=== PATIENT | female | born 1990 | race Caucasian/White ===

== ENCOUNTER 2017-05-05 19:22 | Emergency (ER) | payer BC, OTHER ==
[~2017-05-05] VITALS: Ht 180.3 cm; Wt 126.0 kg
[~2017-05-05 19:22] MED LIST: IBUP-103 PO; PRENTAB26 PO
[2017-05-05 19:27] VITALS: Ht 180.3 cm; Wt 126.0 kg
[2017-05-05] MEDS ORDERED: PHEN-622 PO (19:40)
[2017-05-05] MEDS ORDERED: PHEN-715 PO (19:40)
[2017-05-05] MEDS ORDERED: AMOX875T PO (19:42)
[2017-05-05] MEDS ORDERED: AMOXICIL/CLAVU 875MG HOME PACK PO ONE (19:45)
[2017-05-05 19:48] VITALS: BP 126/72; PULSE 98; TEMP 36.8; O2SAT 97
--- NOTE | 2017-05-06 11:02 | Pharmacy Progress Note ---
ED Pharmacist Progress Note Date of Service: May 06, 2017. Pharmacist Dirk called from [facility] on [address] asking why only 18 tablets ( 9 days supply). I explained the patient did receive a homepack in the ER for the first 2 doses.
--- NOTE | 2017-05-06 18:54 | EMERGENCY ROOM VISIT NOTE ---
History First contact with patient: 19:29 Chief Complaint: CONGESTION Stated Complaint: FACIAL PAIN, TENDERNESS, EAR PAIN, CAN'T SLEEP Nursing Triage Summary: sinus pain and pressure for 3 days. History of Present Illness The patient is a 26 year old female who presents to the Emergency Room with complaints of left sided facial pain, ear pain, and difficulty sleeping worsening over the past 3 days. The patient works as a hairdresser with multiple exposures to disease. She has a history of sinus infections, and reports this feels similar to previous episodes. She has not had significant fever or chills. No chest pain, chest tightness, or shortness of breath. DayQuil and NyQuil have been minimally improving symptoms. She rates her overall discomfort a 7/10. Review of Systems More than 10 systems were reviewed and otherwise negative with the exception of history of present illness. Past Medical/Surgical History Medical Problems: (1) cholelithiasis (2) Sciatica Family History No pertinent family history Social History Smoking Status: Never Smoker Alcohol Use: occasionally Current/Historical Medications Scheduled Amoxicillin & Pot Clavulanate (Augmentin 875-125 mg), 1 TAB PO BID Scheduled PRN Dbhuchfkncxxk-Et-Kf W/ Apap (Vicks Dayquil Severe Cold), 1 TAB PO DIRECTED PRN for COLD SYMPTOMS Vdbfhbjlbmhhv-Mujawsuopk-Xapba (Vicks Nyquil Severe Cold 5-6.25-10-325 mg), 1 TAB PO DIRECTED PRN for COLD SYMPTOMS Physical Exam Vital Signs Date Time Temp Pulse Resp B/P (MAP) Pulse Ox O2 Delivery O2 Flow Rate FiO2 05/05/17 19:48 36.8 98 18 126/72 97 05/05/17 19:27 36.8 98 18 126/72 97 Room Air Physical Exam VITALS: Vitals are noted on the nurse's note and reviewed by myself. Vital signs stable. GENERAL: Well-developed, well-nourished, white female, who is in no acute distress and resting comfortably. Patient is cooperative with the examination. HEAD: Normocephalic atraumatic. Positive tenderness to percussion over the left maxillary sinus EARS: External ear normal. External auditory canals clear, tympanic membranes pearly marquez without erythema or effusion bilaterally. EYES: Pupils equal round and reactive to light and accommodation. Conjunctivae without injection, sclerae without icterus. Extraocular movements intact. NOSE: Patent, turbinates without inflammation or discharge. MOUTH: Mucous membranes moist. Tonsils are not enlarged. Pharynx without erythema, blood, or exudate. Uvula midline. Airway patent. NECK: Supple without nuchal rigidity. No lymphadenopathy. No thyromegaly. Cervical spine is nontender. HEART: Regular rate and rhythm without murmurs gallops or rubs. LUNGS: Clear to auscultation bilaterally without wheezes, rales or rhonchi. No retractions or accessory muscle use. Medical Decision & Procedures Medications Administered Medications (Trade) Dose Ordered Sig/Aleyda Route Start Time Stop Time Status Last Admin Dose Admin Amoxicillin/ Clavulanate Potassium (Augmentin 875MG Home Pack) 1 homepack UD ONCE PO 05/05/17 19:45 05/05/17 19:46 DC 05/05/17 19:45 1 HOMEPACK ED Course Physical exam and history were performed. Nursing notes, EMR, and Medication List were personally reviewed. Patient appears to have acute sinusitis based on examination and history. The patient will be given a course of Augmentin with her first doses provided here by home pack. She may use crme-vss-ptkqyyt analgesics and continue NyQuil and DayQuil. She is to follow with her primary care physician in the next few days and was otherwise invited back to the ER with any new, worsening, or concerning symptoms. The chart was completed utilizing [employer] Speech Voice Recognition Software. Grammatical errors, random word insertions, pronoun errors, and incomplete sentences are an occasional consequence of this system due to software limitations, ambient noise, and hardware issues. Any formal questions or concerns about the content, text, or information contained within the body of this dictation should be directly addressed to the provider for clarification. . Medical Decision Differential diagnosis: Etiologies such as viral syndrome, otitis, pharyngitis, pneumonia, influenza, meningitis, urinary tract infection, sepsis, bacteremia, as well as others were entertained. Impression Primary Impression: Acute sinusitis Departure Information Dispostion Home / Self-Care Condition GOOD Prescriptions Amoxicillin & Pot Clavulanate (Augmentin 875-125 mg) 1 Tab Tab 1 TAB PO BID for 9 Days, #18 TAB Prov: Kashif Schroeder PA-C 05/05/17 Forms HOME CARE DOCUMENTATION FORM, IMPORTANT VISIT INFORMATION Patient Instructions My [facility] Additional Instructions You were seen and evaluated today on an emergency basis only. This is not a substitute for, or an effort to provide, complete comprehensive medical care. It is not possible to recognize and treat all injuries or illnesses in a single emergency department visit. For this reason it is recommended that you followup with your primary care physician with any ongoing or persistent symptoms. For baseline pain relief you may alternate ibuprofen and acetaminophen every 4 hours for pain control. Take 600 mg ibuprofen (Advil) and then 4 hours later take 1000 mg acetaminophen (Tylenol). Do not take more than 3000 mg acetaminophen in a single day. Amoxicillin Clavulanate (Augmentin) 875mg: Take one pill twice daily for 10 total days for your infection. All antibiotics can cause diarrhea. If this occurs and you feel worse or it does not resolve in 1-2 days follow up with your doctor or return to the Emergency Department as this could be signs of serious underlying problems. Any medication can cause an allergic reaction, stop the pills immediately and return to the ER for rash, hives, breathing difficulties, or swelling. You are welcome to return to the emergency department anytime with new, worsening, or concerning symptoms.
== END 2017-05-05 19:49 | disposition home or self-care (01) ==
LOC: C.EDB 19:24 → C.EDD 19:49
DX: J01.90 Acute sinusitis, unspecified (principal); Z87.19 Personal history of other diseases of the digestive system; Z87.898 Personal history of other specified conditions

== ENCOUNTER 2023-12-25 06:16 | Observation (INO) ==
--- NOTE | 2023-05-15 11:18 | PAT Medication Instructions ---
Medication Instructions Date of Service May 15, 2023 Home Medications levonorgestrel 21 mcg/24 hours (8 yrs) 52 mg intrauterine device (Mirena) 1 device intrauterine CONTINOUS naproxen sodium 220 mg capsule (Aleve) 220 mg PO BID PRN Pain lamotrigine 200 mg tablet 200 mg PO BID lurasidone 120 mg tablet (Latuda) 120 mg PO QDD clonazepam 1 mg tablet (Klonopin) 1 mg PO BID PRN Anxiety escitalopram oxalate 20 mg tablet (Lexapro) 20 mg PO QAM pregabalin 25 mg capsule (Lyrica) 25 mg PO BID Continue as directed levonorgestrel 21 mcg/24 hours (8 yrs) 52 mg intrauterine device (Mirena) 1 device intrauterine CONTINOUS ASK your surgeon for instructions naproxen sodium 220 mg capsule (Aleve) 220 mg PO BID PRN Pain Take morning of surgery With a small sip of water, OTHERWISE NOTHING TO EAT OR DRINK AFTER MIDNIGHT: lamotrigine 200 mg tablet 200 mg PO BID clonazepam 1 mg tablet (Klonopin) 1 mg PO BID PRN Anxiety (if needed) escitalopram oxalate 20 mg tablet (Lexapro) 20 mg PO QAM pregabalin 25 mg capsule (Lyrica) 25 mg PO BID Take evening before surgery lamotrigine 200 mg tablet 200 mg PO BID lurasidone 120 mg tablet (Latuda) 120 mg PO QDD clonazepam 1 mg tablet (Klonopin) 1 mg PO BID PRN Anxiety (if needed) pregabalin 25 mg capsule (Lyrica) 25 mg PO BID Other Notes If you have any questions please call us at [phone] or [phone] or or [phone]
--- NOTE | 2023-05-20 11:47 | Anesthesiology Consultation ---
Date of Service May 20, 2023 Assessment & Plan (1) Encounter for pre-operative examination: - check urine test STAT am DOS. - awaiting [facility] PCP pre-op evaluation 05/22/23. Chart Review Chart Review: Pending: Refer to Additional Notes / Consult section and Patient seen in Pre Admission Testing Teaching & Discussion Pre-Anesthesia Teaching/Discussion Notes: Instructed NPO after midnight before surgery, except medications with 15 cc of water. Medication instructions provided according to the PAT guidelines. History Surgery Operation Date: 06/17/23 07:45 Proposed Procedures p Anterior Cervical Discectomy and Fusion C6-C7, Removal of Plate at C4-C6 with Spinal Cord Monitoring - Yevgeniy Rivera, Height/Weight Height: 5 ft 11 in Weight: 127.3 kg Allergies Allergy/AdvReac Type Severity Reaction Status Date / Time cefaclor Allergy Severe Respiratory Verified 05/16/23 09:20 issues (as a premie baby) Medications Home Medications Medication Instructions Recorded Confirmed Last Taken levonorgestrel 21 mcg/24 hours (8 1 device intrauterine CONTINOUS 03/27/18 05/14/23 Unknown yrs) 52 mg intrauterine device (Mirena) naproxen sodium 220 mg capsule 220 mg PO BID PRN Pain 05/02/18 05/14/23 05/01/18 21:00 (Aleve) lamotrigine 200 mg tablet 200 mg PO BID 01/18/22 05/14/23 01/18/22 08:00 lurasidone 120 mg tablet (Latuda) 120 mg PO QDD 01/18/22 05/14/23 01/17/22 clonazepam 1 mg tablet (Klonopin) 1 mg PO BID PRN Anxiety 05/14/23 05/14/23 Unknown escitalopram oxalate 20 mg tablet 20 mg PO QAM 05/14/23 05/14/23 Unknown (Lexapro) pregabalin 25 mg capsule (Lyrica) 25 mg PO BID 05/14/23 05/14/23 Unknown Past Medical History Medical History Anxiety Benign tumor of kidney Rt Bipolar disorder Cervical spinal stenosis Depression Fatty liver Seasonal allergies Patient denies h/o stroke, seizures, heart attack, heart failure, DM, HTN, blood clots/DVTs or blood transfusions. Exercise / Class Metabolic Activity III < 4 Walking/Shop/Light housework (denies chest discomfort or shortness of breath with usual activities, less than 8 steps in home) Past Family History Family History (Updated 05/20/23 @ 11:57 by Tonya Mejía PA-C) Father Diabetes Past Surgical History Surgical History History of cholecystectomy History of left knee surgery History of neck surgery Limited ROM up and side to side Hx of wisdom tooth extraction x2 Past Anesthesia History No Hx of Anesthesia Complications and Other (mother with bradycardia with nitrous oxide) History of PONV History of PONV (cholecystectomy, denies needing scop patch) and Hx of Motion Sickness STOP BANG Total 4 Social History Smoking Status: Former smoker Smoking cigarettes per day: currently vaping (no nicotine)-advised Do You Dip or Chew Tobacco: No Smoking End Date: quit cigs 8 days ago Hx Alcohol Use: Yes alcohol intake frequency: holidays/special occasions only Hx Substance Use: No substance use type: does not use Review of Systems Patient denies chest pain, shortness of breath, dyspnea on exertion, snoring, witnessed apneas, reflux, fever, chills, cough, wheezing, or palpitations. Physical Exam Vital Signs Vitals BP 118/78 P 71 TEMP 98.4 SP02 97% on RA RESP 17 Physical Patient resting comfortably in chair in no acute distress, alert and oriented, responding appropriately throughout visit Full cervical extension range of motion without pain TMD < 3 finger breadths Mallampati Score 3 Dentition: one broken/loose tooth, denies caps/crowns, implants or bridges Lungs: normal respiratory effort. Good air movement, clear throughout to auscultation, no adventitious breath sounds Cardiac: regular rate and rhythm, no murmurs noted Carotid arteries: negative bruit bilat Lab Results Anesthesia Preop Results Results Anesthesia Widget: WBC 8.33 K/ul (4.8-10.8) 05/20/23 Hgb 13.4 g/dl (12.0-16.0) 05/20/23 Hct 38.7 % (37.0-47.0) 05/20/23 Plt 269 K/uL (130-400) 05/20/23 Na 136 mmol/L (136-145) 05/20/23 K 4.1 mmol/L (3.5-5.1) 05/20/23 Cl 105 mmol/L (98-107) 05/20/23 CO2 26 mmol/L (21-32) 05/20/23 BUN 17 mg/dl (6-23) 05/20/23 Creat 0.66 mg/dl (0.6-1.2) 05/20/23 Glucose Level 95 mg/dl (70-99(Fasting)) 05/20/23 PT 10.9 Seconds (9.0-12.0) 05/20/23 PTT 29 Seconds (21-31) 05/20/23 INR 1.0 (0.9-1.1) 05/20/23 Urine Color Yellow 05/20/23 Urine Appearance Clear (Clear) 05/20/23 Urine pH 6.0 (4.5-7.5) 05/20/23 Urine Specific [place] 1.012 (1.000-1.030) 05/20/23 Urine Protein Negative (Negative) 05/20/23 Urine Glucose (UA) Negative (Negative) 05/20/23 Urine Ketones Negative (Negative) 05/20/23 Urine Blood 1+ (Negative) H 05/20/23 Urine Nitrite Negative (Negative) 05/20/23 Urine Bilirubin Negative (Negative) 05/20/23 Urine Urobilinogen Negative (Negative) 05/20/23 Urine Leukocyte Esterase Negative (Negative) 05/20/23 Urine WBC (Auto) 1-5 /hpf (0-5) 05/20/23 Urine RBC (Auto) 0-4 /hpf (0-4) 05/20/23 Urine Hyaline Casts (Auto) 0 /lpf (0-5) 05/20/23 Urine Epithelial Cells (Auto) 5-10 /lpf (0-5) H 05/20/23 Urine Bacteria (Auto) Negative (Negative) 05/20/23 Blood Type O Positive 05/20/23 Antibody Screen NEGATIVE 05/20/23 Testing Electrocardiogram Date: 01/25/23 NSR, rate 73 bpm Chest X-Ray Date: 11/23/22 *1view* No acute process. Other Testing Chest, abdomen pelvis 01/26/[address] No acute findings in the abdomen or pelvis. Neck and head CTA 01/18/22 1. No acute intracranial hemorrhage, evidence of acute territorial infarction, or other acute intracranial disease process. 2. No occlusion, hemodynamically significant stenosis, or dissection in the major cervical arteries. 3. No occlusion, hemodynamically significant stenosis, aneurysm, dissection, or arteriovenous malformation in the major intracranial arteries. 4. Postsurgical changes are seen in the cervical spine.
--- NOTE | 2023-12-13 13:56 | PAT Medication Instructions ---
Medication Instructions Date of Service December 13, 2023 Home Medications levonorgestrel 21 mcg/24 hr (up to 8 years) 52 mg intrauterine device (Mirena) 1 device intrauterine CONTINUOUS naproxen sodium 220 mg capsule (Aleve) 220 mg PO BID PRN Pain lurasidone 120 mg tablet (Latuda) 120 mg PO QDD clonazepam 1 mg tablet (Klonopin) 1 mg PO BID PRN Anxiety escitalopram oxalate 20 mg tablet (Lexapro) 20 mg PO QAM pantoprazole 40 mg tablet,delayed release 40 mg PO QAM Continue as directed levonorgestrel 21 mcg/24 hr (up to 8 years) 52 mg intrauterine device (Mirena) 1 device intrauterine CONTINUOUS ASK your surgeon for instructions naproxen sodium 220 mg capsule (Aleve) 220 mg PO BID PRN Pain Take morning of surgery With a small sip of water, OTHERWISE NOTHING TO EAT OR DRINK AFTER MIDNIGHT: clonazepam 1 mg tablet (Klonopin) 1 mg PO BID PRN Anxiety (if needed) escitalopram oxalate 20 mg tablet (Lexapro) 20 mg PO QAM pantoprazole 40 mg tablet,delayed release 40 mg PO QAM Take evening before surgery lurasidone 120 mg tablet (Latuda) 120 mg PO QDD clonazepam 1 mg tablet (Klonopin) 1 mg PO BID PRN Anxiety (if needed) Other Notes If you have any questions please call us at [phone] or [phone] or [phone] or [phone]
--- NOTE | 2023-12-16 13:57 | Anesthesiology Consultation ---
Date of Service December 16, 2023 Assessment & Plan (1) Encounter for pre-operative examination: - Check BSG, test AM DOS - Infectious disease screening: Per assessment on 12/16/23: No known recent infectious disease contacts or current infectious disease symptoms. - S/P C4-6 ACDF (05/02/18): Grade view 1, Glidescope#4, ETT 7.5, atraumatic at [facility] - PCP note (06/10/23): "Low risk.. Patient is cleared for scheduled surgery" - PCP visit (11/20/23): "33-year-old seen today because of increase in neck pain and suspected cervical radiculopathy symptoms including numbness involving the ulnar aspect of the left hand and forearm. She is in the process of scheduling an appointment with Dr. Rivera who did her initial cervical fusion in April 2018. She is under the impression that she needs an extension of the fusion. Complicating matters is that she recently took a job at [employer] with her initial goal was to get a job that she would not have repetitive lifting or heavy lifting.. She is afraid that with this activity she is going to aggravate than cervical radiculopathy further.. Likely cervical stenosis in a patient who has already had C4-C6 fusion. I provided the patient with a letter basically indicating that she has had prior cervical fusion and she has symptoms now that are indicative of current cervical radiculopathy. I indicated that repetitive lifting could aggravate the situation." Chart Review Chart Review: Acceptable Risk for Surgery and Patient seen in Pre Admission Testing Teaching & Discussion Pre-Anesthesia Teaching/Discussion Notes: Instructed NPO after midnight before surgery,except medications with 15 cc of water. Medication instructions provided according to the PAT guidelines. History Surgery Operation Date: 08/05/23 10:55 Proposed Procedures p C6-C7 Anterior Cervical Discectomy and Fusion, Removal of Plate at C4-C6, Spinal Cord Monitoring - Yevgeniy Rivera DO Operation Date: 12/25/23 09:05 Proposed Procedures p Anterior Cervical Discectomy and Fusion C6-C7, Hardware Removal C4-C6 - Yevgeniy Rivera DO Height/Weight Height: 5 ft 11 in Weight: 116.9 kg Allergies Allergy/AdvReac Type Severity Reaction Status Date / Time cefaclor Allergy Severe Respiratory Verified 12/10/23 13:39 issues (as a premie baby) Medications Home Medications Medication Instructions Recorded Confirmed Last Taken levonorgestrel 21 mcg/24 hr (up to 1 device intrauterine CONTINOUS 03/27/18 12/10/23 Unknown 8 years) 52 mg intrauterine device (Mirena) naproxen sodium 220 mg capsule 220 mg PO BID PRN Pain 05/02/18 12/10/23 05/01/18 21:00 (Aleve) lurasidone 120 mg tablet (Latuda) 120 mg PO QDD 01/18/22 12/10/23 01/17/22 clonazepam 1 mg tablet (Klonopin) 1 mg PO BID PRN Anxiety 05/14/23 12/10/23 Unknown escitalopram oxalate 20 mg tablet 20 mg PO QAM 05/14/23 12/10/23 Unknown (Lexapro) pantoprazole 40 mg tablet,delayed 40 mg PO QAM 12/10/23 12/10/23 Unknown release bupropion HCl 100 mg tablet 100 mg PO DAILY 12/16/23 12/16/23 Unknown metformin 1 tab PO DAILY 12/16/23 12/16/23 Unknown tizanidine 2 mg capsule (Zanaflex) 2 mg PO Q8H PRN Pain, muscle spasms 12/16/23 12/16/23 Unknown Past Medical History Medical History Anxiety Back pain Benign tumor of kidney Right Bipolar disorder Cervical spinal stenosis Depression Fatty liver History of COVID-19 (10/26/23) Symptoms resolved Hx of migraines No issues x approximately 10 years Numbness and tingling in both hands CARMENCITA (obstructive sleep apnea) Recent dx per [facility] records, plan for future CPAP Prediabetes Taking Metformin Seasonal allergies Exercise / Class Metabolic Activity II 4-5 Yardwork/Stairs/Walk up hill Past Family History Family History Father Diabetes Past Surgical History Surgical History History of anesthesia reaction "Head thrashing back and forth" after cholecystectomy History of cholecystectomy History of left knee surgery History of neck surgery C4-6 ACDF (05/02/18): Grade view 1, Glidescope#4, ETT 7.5, atraumatic at [facility] Hx of wisdom tooth extraction x2 PONV (postoperative nausea and vomiting) nausea Past Anesthesia History No Family Hx of Anesthesia Complications and Other ("Head thrashing back and forth" after cholecystectomy, resolved with reassurance/calming by staff per patient) History of PONV History of PONV and Hx of Motion Sickness (Situational) STOP BANG Total 4 Social History Smoking Status: Former smoker Do You Dip or Chew Tobacco: No Smoking End Date: quit 11/2023 Hx Alcohol Use: Yes alcohol intake frequency: a few times a month Hx Substance Use: No substance use type: does not use Review of Systems Patient denies chest pain, shortness of breath, dyspnea on exertion, fever, chills, cough, wheezing, palpitations. Physical Exam Vital Signs BP 127/85 P 85 TEMP 98.5 SP02 97%RA RESP 16 Physical Full cervical extension range of motion. Full TMJ range of motion. TMD 3 finger breaths Mallampati Score II Dentition: several missing teeth (front right upper tooth, sides), broken lower molar Lungs: clear throughout to auscultation Cardiac: regular rate and rhythm, no murmurs noted Spine: normal Carotid arteries: negative bruit Extremities: no LE edema Thick neck Lab Results Anesthesia Preop Results Results Anesthesia Widget: WBC 7.93 K/ul (4.8-10.8) 12/16/23 Hgb 14.5 g/dl (12.0-16.0) 12/16/23 Hct 41.9 % (37.0-47.0) 12/16/23 Plt 269 K/uL (130-400) 12/16/23 Na 136 mmol/L (136-145) 12/16/23 K 4.1 mmol/L (3.5-5.1) 12/16/23 Cl 103 mmol/L (98-107) 12/16/23 CO2 25 mmol/L (21-32) 12/16/23 BUN 12 mg/dl (6-23) 12/16/23 Creat 0.79 mg/dl (0.6-1.2) 12/16/23 Glucose Level 94 mg/dl (70-99(Fasting)) 12/16/23 PT 10.9 Seconds (9.0-12.0) 12/16/23 PTT 30 Seconds (21-31) 12/16/23 INR 1.0 (0.9-1.1) 12/16/23 HA1c 6.0 % (4.5-5.6) H 12/16/23 Urine Color Yellow 12/16/23 Urine Appearance Clear (Clear) 12/16/23 Urine pH 6.0 (4.5-7.5) 12/16/23 Urine Specific [place] 1.010 (1.000-1.030) 12/16/23 Urine Protein Negative (Negative) 12/16/23 Urine Glucose (UA) Negative (Negative) 12/16/23 Urine Ketones Negative (Negative) 12/16/23 Urine Blood 2+ (Negative) H 12/16/23 Urine Nitrite Negative (Negative) 12/16/23 Urine Bilirubin Negative (Negative) 12/16/23 Urine Urobilinogen Negative (Negative) 12/16/23 Urine Leukocyte Esterase Trace (Negative) H 12/16/23 Urine WBC (Auto) 0-5 /hpf (0-5) 12/16/23 Urine RBC (Auto) 3-5 /hpf (0-2) H 12/16/23 Urine Hyaline Casts (Auto) 0-2 /lpf (0-2) 12/16/23 Urine Epithelial Cells (Auto) 3-5 /hpf (0-2) H 12/16/23 Urine Bacteria (Auto) 1+ (None Seen) H 12/16/23 Blood Type O Positive 12/16/23 Antibody Screen NEGATIVE 12/16/23 Testing Laboratory Results Surgeon's office made aware of abnormal UA* Electrocardiogram Date: 01/25/23 NSR, rate 73 bpm. "Normal ECG" Other Testing Chest CT Date: 01/26/[address] No acute findings in the abdomen or pelvis.
[~2023-12-25 06:16] MED LIST changes: +ACETAMINOPHEN 500 MG TAB PO SCH; +ALLERGY Noted to ORDERED Medication SCH; +CeleBREX 200 MG CAP PO SCH; +GABAPENTIN 900 MG DOSE PO SCH; -IBUP-103 PO; +LACTATED RINGER'S 1,000 ML IV SCH; +LR 15ML/HR IV SCH; +LR 60ML/HR IV SCH; -PRENTAB26 PO
[2023-12-25] MEDS: ACETAMINOPHEN 500 MG TAB PO SCH (07:03)
[2023-12-25] MEDS: LR 60ML/HR IV SCH (07:03)
[2023-12-25] MEDS: LR 15ML/HR IV SCH (07:03)
[2023-12-25] MEDS: CeleBREX 200 MG CAP PO SCH (07:04)
[2023-12-25] MEDS: GABAPENTIN 900 MG DOSE PO SCH (07:05)
[2023-12-25] MEDS ORDERED: PROPOFOL IV EMULSION 10 MG/ML 20 ML VIAL IV ONE (07:12)
[2023-12-25] MEDS ORDERED: ONDANSETRON INJ 2 MG/ML 2 ML VIAL ONE (07:12)
[2023-12-25] MEDS ORDERED: MIDAZOLAM HCL 1 MG/ML 2ML VIAL ONE (07:12)
[2023-12-25] MEDS ORDERED: LIDOCAINE 2% 2 ML VIAL/AMP(20MG/ML) INFIL ONE (07:12)
[2023-12-25] MEDS ORDERED: DEXAMETHASONE SOD INJ 4 MG/ML VIAL ONE (07:12)
[2023-12-25] MEDS ORDERED: ROCURONIUM BROMIDE 10 MG/ML 5 ML VIAL IV ONE (07:12)
[2023-12-25] MEDS ORDERED: SUGAMMADEX SODIUM 200 MG/2 ML VIAL IV ONE (07:12)
[2023-12-25] MEDS ORDERED: fentaNYL citrate PF 100 MCG/2 ML VIAL ONE (07:12)
[2023-12-25] MEDS ORDERED: ePHEDrine sulfate 50 MG/ML AMP IV PRN (07:23)
[2023-12-25] MEDS ORDERED: ONDANSETRON INJ 2 MG/ML 2 ML VIAL IV PRN ×2 (07:23→12:25)
[2023-12-25] MEDS ORDERED: ATROPINE SULFATE 0.1 MG/ML 10ML SYR IV PRN (07:23)
--- NOTE | 2023-12-25 07:41 | History & Physical Bridge Note ---
Date of Service December 25, 2023 History & Physical Bridge Note I have examined the patient, reviewed the History & Physical and in the interval since the performance of the History & Physical I have noted the following changes of clinical significance: no changes noted
--- NOTE | 2023-12-25 07:43 | History & Physical Report ---
Date of Service December 25, 2023 Assessment & Plan (1) Cervical spinal stenosis: Plan Anterior cervical discectomy and fusion C6-C7, hardware removal C4-C6 History of Present Illness Chief Complaint: Neck and arm pain Primary Care Provider: Best Marie MD This is a 33-year-old female presents with chronic persistent neck and arm pain a failed course of nonoperative care is here for surgical intervention. Allergies Allergy/AdvReac Type Severity Reaction Status Date / Time cefaclor Allergy Severe Respiratory Verified 12/25/23 06:51 issues (as a premie baby) gabapentin Allergy Severe Verified 12/25/23 07:06 soap Allergy Intermediate Hives Verified 12/25/23 06:51 Home Medications Medication Instructions Recorded Confirmed Type levonorgestrel 21 mcg/24 hr (up to 1 device intrauterine CONTINOUS 03/27/18 12/25/23 History 8 years) 52 mg intrauterine device (Mirena) naproxen sodium 220 mg capsule 220 mg PO BID PRN Pain 05/02/18 12/25/23 History (Aleve) lurasidone 120 mg tablet (Latuda) 120 mg PO QDD 01/18/22 12/25/23 History clonazepam 1 mg tablet (Klonopin) 1 mg PO BID PRN Anxiety 05/14/23 12/25/23 History escitalopram oxalate 20 mg tablet 20 mg PO QAM 05/14/23 12/25/23 History (Lexapro) pantoprazole 40 mg tablet,delayed 40 mg PO QAM 12/10/23 12/25/23 History release (Protonix) bupropion HCl 100 mg tablet 100 mg PO DAILY 12/16/23 12/25/23 History metformin 1 tab PO DAILY 12/16/23 12/25/23 History tizanidine 2 mg capsule (Zanaflex) 2 mg PO Q8H PRN Pain, muscle spasms 12/16/23 12/25/23 History doxepin 10 mg capsule 10 mg PO HS 12/25/23 12/25/23 History Past Med/Surg History Problem List Encounter for pre-operative examination Sciatica (Chronic) Medical History Anxiety Back pain Benign tumor of kidney Right Bipolar disorder Cervical spinal stenosis Depression Fatty liver History of COVID-19 (10/26/23) Symptoms resolved Hx of migraines No issues x approximately 10 years Numbness and tingling in both hands CARMENCITA (obstructive sleep apnea) Recent dx per S records, plan for future CPAP Prediabetes Taking Metformin Seasonal allergies Surgical History History of anesthesia reaction "Head thrashing back and forth" after cholecystectomy History of cholecystectomy History of left knee surgery History of neck surgery C4-6 ACDF (05/02/18): Grade view 1, Glidescope#4, ETT 7.5, atraumatic at [facility] Hx of wisdom tooth extraction x2 PONV (postoperative nausea and vomiting) nausea Family History Father Diabetes Social History Smoking Status: Former smoker Tobacco Type: Cigarettes and E-cigarettes / Vaping Smoking End Date: quit 11/2023; Second Hand Exposure: No; Do You Dip or Chew Tobacco: No; Tobacco Cessation Education Requested by Patient: No Hx Alcohol Use: Yes Hx Substance Use: No Preferred Language: Maori Communication Ability: Effective Manager Business Required: No Beliefs That Will Affect Care: None marital status: Single Current Living Situation: Family Current Living Situation Comment: lives with dtr current occupational status: employed Other Information That Helps Us Care for You: No Feels Safe at Home: Yes Safety Concerns: Feels Safe At This Time Assistive Devices: Glasses Physical Exam Physical Exam: Patient is alert and oriented heart regular in rhythm Lungs clear Results & Data Results & Data Vital Signs (Past 12 Hours) Vital Signs Temp Pulse Resp BP Pulse Ox O2 Del Method 12/25/23 06:41 37.0 C 88 18 125/82 96 Room Air
[2023-12-25] MEDS: CLINDAMYCIN/D5W 900 MG/50 ML BAG IV SCH (08:06)
[2023-12-25] MEDS ORDERED: HYDROmorphone INJ 2 MG/ML SYR/VIAL ONE (08:25)
[2023-12-25] MEDS: ceFAZolin 330 MG/ML 1 GM VIAL ONE (08:30)
[2023-12-25] MEDS: FLOSEAL HEMOSTATIC MATRIX 10ML TOP ONE (08:31)
[2023-12-25] MEDS ORDERED: ePHEDrine sulfate 50 MG/5 ML SYR ONE (09:19)
--- NOTE | 2023-12-25 09:52 | Operative Report ---
Post Operative Report Pre & Post Diagnosis Operation Date: 12/25/23 07:45 Pre-Op Diagnosis: Cervical spinal stenosis with radiculopathy postop diagnosis: Same I identified the patient and participated in the time-out.: Yes Procedure Operation Date: 12/25/23 07:45 Actual Procedures #1 removal of anterior cervical plate and screws C4-C6. #2 exploration of fusion C4-C6. #3 anterior cervical discectomy with bilateral foraminotomies C6- C7. #4 anterior cervical arthrodesis C6-C7. #5 placement of Spira 9 mm cage filled with os design bone graft to C6-C7. #6 application of plate and screws across C6-C7. Surgeon Yevgeniy Rivera, DO Boom Supervisor Brisa Villar Estimated Blood Loss 10 Findings See Below The patient is 5 foot 11 weighing over 114 kg with a BMI in excess of 35. The patient's body was did contribute to significant technical difficulty with positioning exposure and the procedure itself and at least 50% increased operative time. Specimens None Indications This is a 33-year-old female who presents problems diagnosis of failing course of nonoperative care is here for surgical invention. Description of Procedure Patient was met with identified informed consent obtained. Patient was then taken to the operative suite underwent patient placed in spine position on the Suresh table with a head Santizo sams. All bony promises well-padded eyes inspected to ensure no external pressure placed upon the. This point the anterior cervical spine was prepped and draped in normal sterile fashion. With the assistance of fluoroscopy notified the C6 vertebral body and a transverse incision was placed along the right anterior aspect of the cervical spine overlying this region. Blunt dissection with the assistance of bipolar cautery performed down to and exposing the anterior cervical spine from C3-4 to C7. And then proceeded to remove the anterior cervical plate from extending from C4-C6. I explored the fusion mass noting it to be mature and intact. And then performed a complete discectomy of C6-C7 out to the uncovertebral joints bilaterally. [place] distraction pins utilized to assist in visualization. I performed bilateral medial facetectomies and foraminotomies. Endplates burred to subcortical bleeding bone and 9 mm Spira cage filled os design bone graft tapped in position. Distracting apparatus was removed. All anterior osteophytes burred to a smooth cortical surface and a plate and screws applied with the assistance of fluoroscopy. The incision was then copiously irrigated explored to ensure no damage to surrounding structures remaining bleeding. 10 round MAG drain inserted. The incision was then closed with 2 Vicryl in the fascia 4 Monocryl for final closure. Steri-Strips sterile dressing placed. Patient waken taken to PACU stable condition. Please note spinal cord monitoring visualized at the procedure no changes noted. Lastly Brisa Villar was present at the entire procedure and all the patient positioning complex portions of the surgery and final skin closure. Im ordering 10 grams of Triple [place] Collagen Powder ([employer] [id number]) to treat an incision wound that was caused by a spine procedure. The incision is approximately 2 cm(W) x 4 cm(L) into the joint (D) in size and is a full thickness wound. Triple [place] collagen comes in 1 gram packets so 10 packets were ordered. Given the size of the wound, with light to moderate exudate I chose to order a 10 day supply. The patient will be provided instructions for proper application of the collagen wound kit. The patient will be asked to apply the collagen powder daily and then cover it with sterile dressings dispensed. Collagen was selected as I expect the collagen to attract monocytes and fibroblasts, act as a sacrificial substrate for MMPs, and ultimately proved a matrix for tissue and vessel growth. The collagen will act as a primary dressing in this scenario. It is medically necessary for proper healing of these wounds to improve bioavailability and contact with each wound surface, this is also to help prevent infection of wounds and promote healing ultimately leading to a better healing outcome and limit the risk of infection. I attest to the content of the Intraoperative Record and any orders documented therein. Any exceptions are noted below.
[2023-12-25] MEDS: fentaNYL citrate PF 100 MCG/2 ML VIAL IV PRN (10:20)
--- NOTE | 2023-12-25 10:46 | Fluoroscopy Report ---
FL cervical 2-3V CLINICAL HISTORY: ACDF C6-C7/ C4-C6 HW REMOVAL COMPARISON STUDY: None. FLUOROSCOPY TIME: 19 seconds FLUOROSCOPY IMAGES: 3 Ka,r: 13.1 mGy FINDINGS: Anterior cervical discectomy and fusion at C6-C7. The hardware appears intact. Endotracheal tube and surgical drain are partially visualized. IMPRESSION: Fluoroscopic assistance as above. ACT 112: Negative or not required by law. Electronically signed by: Kirit Rasheed M.D. 12/25/2023 10:44 AM
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
--- NOTE | 2023-12-25 11:32 | Anesthesiology Progress Note ---
Date of Service December 25, 2023 Anesthesia Post Procedure Vital Signs Vital Signs: Temp Pulse Pulse Resp BP Pulse Ox O2 Del Method 12/25/23 11:10 36.8 C 94 H 14 124/79 97 Oxymask 12/25/23 11:00 94 H 14 124/79 97 Oxymask 12/25/23 10:50 87 14 132/76 97 Oxymask 12/25/23 10:40 98 H 18 122/72 97 Oxymask 12/25/23 10:30 87 15 132/75 96 Oxymask 12/25/23 10:20 96 H 13 137/90 99 Oxymask 12/25/23 10:10 36 C L 104 H 14 139/78 92 Nasal Cannula 12/25/23 06:41 37.0 C 88 18 125/82 96 Room Air O2 Flow Rate 12/25/23 11:10 4 12/25/23 11:00 4 12/25/23 10:50 4 12/25/23 10:40 6 12/25/23 10:30 8 12/25/23 10:20 8 12/25/23 10:10 4 12/25/23 06:41 Pain Intensity Neck: Pain Intensity: 2 Transfer of Care Handoff Completed per policy Notes Mental Status: alert / awake / arousable and participated in evaluation Patient Amnestic to Procedure: Yes Nausea / Vomiting: adequately controlled Pain: adequately controlled Airway Patency, RR, SpO2: stable & adequate BP & HR: stable & adequate Hydration State: stable & adequate Anesthetic Complications: no major complications apparent and Pt Satisfied with anesthetic care
[2023-12-25] MEDS ORDERED: LORazepam 2 MG/1 ML VIAL IV PRN (12:25)
[2023-12-25] MEDS ORDERED: PROMETHAZINE 12.5 MG/50.5 ML BAG IV PRN (12:25)
[2023-12-25] MEDS ORDERED: dexAMETHasone 8 MG in SYRINGE 0 ML IV PRN (12:25)
[2023-12-25] MEDS ORDERED: METOCLOPRAMIDE HCL INJ 5 MG/ML 2 ML VIAL IV PRN (12:25)
[2023-12-25] MEDS ORDERED: tiZANidine HCL 4 MG TABLET PO PRN (12:25)
[2023-12-25] MEDS ORDERED: SOD PHOSPHATE/SOD BIPHOSPHATE ENEMA 132 ML BTL PR PRN (12:25)
[2023-12-25] MEDS ORDERED: LORazepam 0.5 MG TAB PO PRN (12:25)
[2023-12-25] MEDS ORDERED: PHARMACY GLYCEMIC MGMT CONSULT PRN (12:25)
[2023-12-25] MEDS ORDERED: FAMOTIDINE 20 MG TAB PO PRN (12:25)
[2023-12-25] MEDS ORDERED: hydrOXYzine HCl 25 MG TAB PO PRN (12:25)
[2023-12-25] MEDS ORDERED: ALUMINUM/MAGNESIUM SUSP 30 ML UDC PO PRN (12:25)
[2023-12-25] MEDS ORDERED: ACETAMINOPHEN 1,000 MG/100 ML VIAL IV PRN (12:25)
[2023-12-25] MEDS ORDERED: NALOXONE HCL 0.4 MG/1 ML VIAL/CARP IV PRN (12:25)
[2023-12-25] MEDS ORDERED: MAGNESIUM HYDROXIDE SUSP 30 ML UDC PO PRN (12:25)
[2023-12-25] MEDS ORDERED: clonazePAM 1 MG TAB PO PRN (12:25)
[2023-12-25] MEDS ORDERED: DO NOT ADMINISTER FLU VACCINE PRN (12:25)
[2023-12-25] MEDS ORDERED: bisacodyL 10 MG SUPP PR PRN (12:25)
[2023-12-25] MEDS ORDERED: ONDANSETRON 4 MG OD TAB PO PRN (12:25)
[2023-12-25] MEDS ORDERED: HYDROmorphone INJ 0.5 MG/0.5 ML SYR IV PRN (12:25)
[2023-12-25] MEDS ORDERED: diphenhydrAMINE Capsule 25 MG CAP PO PRN (12:25)
[2023-12-25] MEDS ORDERED: traMADol HCL 50 MG TABLET PO PRN (12:25)
[2023-12-25] MEDS ORDERED: RACEPINEPHRINE 2.25% NEBU SOLN 0.5 ML VIAL INH PRN (12:25)
[2023-12-25] MEDS ORDERED: DO NOT ADMINISTER PNEUMOCOCCAL VACCINE PRN (12:25)
[2023-12-25] MEDS: oxyCODONE HCL IR 5 MG TAB (IMMEDIATE RELEASE) PO PRN (12:59)
[2023-12-25] MEDS: LURASIDONE HCL 20 MG TAB PO SCH (12:59)
[2023-12-25] MEDS: LEVONORGESTREL (MIRENA) IUD PV SCH (13:00)
[2023-12-25] MEDS: LACTATED RINGER'S 1,000 ML IV SCH (13:04)
--- NOTE | 2023-12-25 14:24 | Pharmacy Report ---
Pharmacy Glycemic Short Note 2 - Date of Service December 25, 2023 - Glycemic Short BSG Results (Last 24 hours): 12/25/23 06:46 POC Glucose 138 H OUTPATIENT ANTIDIABETIC REGIMEN: * Metformin ER 500mg PO daily * HbA1c: 6.0% (12/16/23) ASSESSMENT: * Ms Faustin is a 33yo diabetic F, POD 0 s/p spinal procedure with Dr Rivera this morning. * Pt received 8mg IV dexamethasone pre-op and is scheduled to receive 6mg IV daily x3 days. Expect to see steroid-induced hyperglycemia w/ high dose steroids. * Pt was initiated on SQ Novolog on admission for correctional/prandial coverage. Will consider adding basal insulin if warranted by BSG trend. * Pharmacy will continue to follow and adjust regimen as indicated. PLAN FOR INPATIENT GLYCEMIC CONTROL: * Hold outpatient oral diabetes medications * Basal insulin * none at this time * Bolus insulin * NovoLog per scale ACHS or Q6hrs while NPO * Goal Range: Low 110 mg/dL - High 140 mg/dL * Correction Factor: 25 mg/dL/unit * Nutritional / Prandial insulin per carb ratio of 1 unit per 9 grams CHO consumed
[2023-12-25] MEDS ORDERED: GLUCOSE 10 TAB/TUBE PO PRN (14:30)
[2023-12-25] MEDS ORDERED: DEXTROSE 50% 50 ML SYRINGE IV PRN (14:30)
[2023-12-25] MEDS ORDERED: GLUCAGON FOR INJ 1 MG VIAL IM PRN (14:30)
[2023-12-25] MEDS ORDERED: CARBOHYDRATES FOR HYPOGLYCEMIA PO PRN (14:30)
[2023-12-25] MEDS ORDERED: GLUCOSE 40% GEL 15 GM TUBE PO PRN (14:30)
[2023-12-25] MEDS: CLINDAMYCIN/D5W 600 MG/50 ML PREMIX BAG IV SCH (15:09)
[2023-12-25] MEDS ORDERED: ceFAZolin 2000MG 2,000 MG/15 ML SYR IV SCH (16:00)
[2023-12-25] MEDS: INSULIN ASPART PER UNIT CHARGE SC SCH (17:39)
[2023-12-25] MEDS: ACETAMINOPHEN 500 MG TAB PO PRN (17:43)
[2023-12-25] MEDS: DOCUSATE SODIUM/SENNA 50/8.6MG TAB PO SCH (20:49)
[2023-12-25] MEDS: HYDROmorphone INJ 1 MG/ML SYRINGE IV PRN (20:49)
[2023-12-25] MEDS: DOXEPIN HCL 10 MG CAPSULE PO SCH (20:49)
[2023-12-26] MEDS: POLYETHYLENE (MIRALAX) 17 GM PACK PO SCH (06:11)
[2023-12-26] MEDS: buPROPion HCl 100 MG TABLET PO SCH (07:33)
[2023-12-26] MEDS: PANTOprazole 40 MG TAB PO SCH (07:33)
[2023-12-26] MEDS: dexAMETHasone 6 MG in SYRINGE 0 ML IV SCH (07:33)
[2023-12-26] MEDS: ESCITALOPRAM OXALATE 20 MG TAB PO SCH (07:33)
--- NOTE | 2023-12-26 08:34 | Discharge Summary ---
Date of Service December 26, 2023 Admission HPI Per Admitting Provider This is a 33-year-old female presents with chronic persistent neck and arm pain a failed course of nonoperative care is here for surgical intervention. Admission Exam (Per Admitting) Constitutional WD/WN, vitals as above Eyes normal visual barajas by confrontation ENMT external ear and nose normal, oropharynx normal Neck trachea midline Respiratory normal respiratory effort Cardiovascular Extremities: normal capillary refill Gastrointestinal (Abdomen) Inspection/Auscultation: abdomen normal to inspection Musculoskeletal Head/Neck/Chest: + limited ROM of neck Spine: + pain with cervical ROM Extremities: extremities normal to inspection and strength 5/5 throughout Gait: normal gait Skin no rashes, warm and dry Neurologic normal touch/pain/proprioception and moves all extremities Psychiatric A+Ox3, euthymic affect Eye Contact: good eye contact Discharge Data Procedures Performed Operation Date: 12/25/23 07:45 Actual Procedures p C6-C7 Anterior Cervical Discectomy and Fusion,(Not Applicable) - Yevgeniy Rivera DO s C4-C6 Hardware Removal(Not Applicable) - Yevgeniy Rivera DO Hospital Course (1) Encounter for pre-operative examination: Karol is being discharged home on postoperative day 1 status post hardware removal of C4-C6, ACDF C6-7. Arm symptoms are improving. She is tolerating a soft diet. Mild dysphagia. She is up and ambulatory independently around the room and voiding without issue. MAG drain output last shift was 15 cc. Discharge Instructions ACTIVITY RECOMMENDATIONS: SELF CARE INSTRUCTIONS AFTER CERVICAL FUSIONS 1. No smoking. Smoking drastically decreases the chance of a solid fusion. 2. No bending, lifting more than 5 pounds, or twisting (roll like a log when turning in bed). 3. You may shower 3 days after surgery. Thoroughly dry wound. Do not soak in the tub. 4. Cervical collar: Must be worn at all times including sleeping. You may remove the brace only to bath, eat and if you are sitting in a recliner. 5. Please walk as much as you can for exercise. Gradually increase the distance that you walk as your endurance increases. SPECIAL CARE INSTRUCTIONS: VERY IMPORTANT TO READ AND REVIEW A. Do not take any anti-inflammatory medications (i.e. Indocin, Advil, Aspirin, Naprosyn, Aleve, Motrin, etc.) as these may inhibit the chance of a solid fusion. Tylenol is okay to take. B. Your surgical incision has been closed with a cosmetic suture under the skin that will dissolve in about 6 weeks. In 14 days, you can use a pair of clean scissors and cut the suture that is left outside of the skin at the ends of your incision. C. Complications are uncommon, but please contact us if you have any signs or symptoms of: 1. wound infection (fever higher than 102.5 degrees F, redness, separation of wound, drainage, or increasing pain from the incision) 2. blood clots in legs (pain, swelling, redness and warmth in legs) 3. urinary tract infection (fever higher than 102.5 degrees, burning upon urination or increased frequency of urination) 4. nerve problems (inability to walk on your toes or heels, numbness, loss of bowel or bladder control) 5. any other symptoms that concern you. D. Please call the office at if you have any concerns or questions about your operation or recovery. MANAGING PAIN AFTER SPINAL SURGERY 1. Narcotic medication is intended for short-term use and will be provided for surgical pain. Surgical pain usually lasts for a period of 4-6 weeks. Narcotic medication includes Percocet, Vicodin, Darvocet, Tylenol #3 or Lortab. 2. Longer-term pain is more appropriately treated with non-narcotic medication such as Tylenol ES. 3. Muscle spasm is not appropriately treated with narcotics. Muscle relaxers such as Soma, Flexeril or Skelaxin can be used along with Tylenol ES. 4. Remember that we all live with some "aches and pains". This is not unusual or uncommon after an injury or as we get older. 5. We will provide appropriate medication within the normal guidelines of their prescribed use. We will also be very cautious and aware of potential abuse and extended duration of patients' medication needs. 6. Please allow 2-3 days to process refills. Prescriptions will not be mailed but must be picked up at the office. FOLLOW UP VISIT: Keep your scheduled follow-up appointment. Any questions, please call the office at .
[2023-12-26 09:40] VITALS: BP 125/74; PULSE 74; RESP 16; TEMP 99; O2SAT 95
== END 2023-12-26 12:30 | disposition home or self-care (01) ==
LOC: 3E 06:16 → ASU 06:16

== ENCOUNTER 2024-06-30 11:38 | Observation (INO) ==
--- NOTE | 2024-06-09 08:48 | PAT Medication Instructions ---
Medication Instructions Date of Service June 09, 2024 Home Medications levonorgestrel 21 mcg/24 hr (up to 8 years) 52 mg intrauterine device (Mirena) 1 device intrauterine UD lurasidone 120 mg tablet (Latuda) 120 mg PO QDD clonazepam 1 mg tablet (Klonopin) 1 mg PO BID PRN Anxiety pantoprazole 40 mg tablet,delayed release (Protonix) 40 mg PO QAM bupropion HCl 100 mg tablet 100 mg PO QAM tizanidine 2 mg capsule (Zanaflex) 2 mg PO Q8H PRN Pain, muscle spasms doxepin 10 mg capsule 10 mg PO HS duloxetine 60 mg capsule,delayed release (Cymbalta) 60 mg PO BID lidocaine 4 % topical patch (Salonpas (lidocaine)) 1 patch topical DAILY PRN Pain metformin 500 mg tablet,extended release 24 hr 500 mg PO QAM Continue as directed levonorgestrel 21 mcg/24 hr (up to 8 years) 52 mg intrauterine device (Mirena) 1 device intrauterine UD lidocaine 4 % topical patch (Salonpas (lidocaine)) 1 patch topical DAILY PRN Pain (Avoid placement near surgery site prior to surgery) DO NOT take the morning of surgery metformin 500 mg tablet,extended release 24 hr 500 mg PO QAM Take morning of surgery With a small sip of water, OTHERWISE NOTHING TO EAT OR DRINK AFTER MIDNIGHT: clonazepam 1 mg tablet (Klonopin) 1 mg PO BID PRN Anxiety (if needed) pantoprazole 40 mg tablet,delayed release (Protonix) 40 mg PO QAM bupropion HCl 100 mg tablet 100 mg PO QAM tizanidine 2 mg capsule (Zanaflex) 2 mg PO Q8H PRN Pain, muscle spasms (if needed) duloxetine 60 mg capsule,delayed release (Cymbalta) 60 mg PO BID Take evening before surgery lurasidone 120 mg tablet (Latuda) 120 mg PO QDD clonazepam 1 mg tablet (Klonopin) 1 mg PO BID PRN Anxiety (if needed) tizanidine 2 mg capsule (Zanaflex) 2 mg PO Q8H PRN Pain, muscle spasms (if needed) doxepin 10 mg capsule 10 mg PO HS duloxetine 60 mg capsule,delayed release (Cymbalta) 60 mg PO BID Other Notes If you have any questions please call us at [phone] or [phone] or [phone] or [phone]
--- NOTE | 2024-06-11 14:28 | Anesthesiology Consultation ---
Date of Service June 11, 2024 Assessment & Plan (1) Encounter for pre-operative examination: Plan - check urine test and BSG am DOS. - awaiting surgeon ordered medical clearance, S PCP. PAT testing to be faxed to PCP. - s/p C4-6 ACDF (05/02/18): Grade view 1, Glidescope#4, ETT 7.5, atraumatic at [facility]. Chart Review Chart Review: Pending: Refer to Additional Notes / Consult section and Patient seen in Pre Admission Testing Teaching & Discussion Pre-Anesthesia Teaching/Discussion Notes: Instructed NPO after midnight before surgery, except medications with 15 cc of water. Medication instructions provided according to the PAT guidelines. History Surgery Operation Date: 06/30/24 07:45 Proposed Procedures p L4-S1 Decompression and Fusion, with Spinal Cord Monitoring - Yevgeniy Rivera, Height/Weight Height: 5 ft 10.5 in Weight: 123.6 kg Allergies Allergy/AdvReac Type Severity Reaction Status Date / Time cefaclor Allergy Severe Respiratory Verified 05/29/24 14:57 issues (as a premie baby) soap Allergy Intermediate Ivory Soap Verified 05/29/24 14:57 - Hives gabapentin AdvReac Severe Anger, Verified 05/29/24 14:57 crying, mood rage pregabalin AdvReac Severe anger, Verified 06/11/24 14:42 crying, mood rage Medications Home Medications Medication Instructions Recorded Confirmed Last Taken levonorgestrel 21 mcg/24 hr (up to 1 device intrauterine UD 03/27/18 05/29/24 02/27/22 8 years) 52 mg intrauterine device (Mirena) lurasidone 120 mg tablet (Latuda) 120 mg PO QDD 01/18/22 05/29/24 12/23/23 clonazepam 1 mg tablet (Klonopin) 1 mg PO BID PRN Anxiety 05/14/23 05/29/24 12/25/23 05:20 pantoprazole 40 mg tablet,delayed 40 mg PO QAM 12/10/23 05/29/24 12/25/23 05:20 release (Protonix) bupropion HCl 100 mg tablet 100 mg PO QAM 12/16/23 05/29/24 12/24/23 07:00 tizanidine 2 mg capsule (Zanaflex) 2 mg PO Q8H PRN Pain, muscle spasms 12/16/23 05/29/24 12/23/23 doxepin 10 mg capsule 10 mg PO HS 12/25/23 05/29/24 12/23/23 duloxetine 60 mg capsule,delayed 60 mg PO BID 05/29/24 05/29/24 Unknown release (Cymbalta) lidocaine 4 % topical patch 1 patch topical DAILY PRN Pain 05/29/24 05/29/24 Unknown (Salonpas (lidocaine)) metformin 500 mg tablet,extended 500 mg PO QAM 05/29/24 05/29/24 Unknown release 24 hr Past Medical History Medical History Anxiety Back pain Benign tumor of kidney Right - monitoring Bipolar disorder Cervical spinal stenosis Depression Fatty liver GERD (gastroesophageal reflux disease) controlled, stable per pt History of COVID-19 (10/26/23) Symptoms resolved Hx of migraines No issues x approximately 10 years Numbness and tingling in both hands CARMENCITA (obstructive sleep apnea) Recent dx per [facility] records, plan for future CPAP Prediabetes Taking Metformin Seasonal allergies Patient denies h/o stroke, seizures, heart attack, heart failure, HTN, blood clots/DVTs or blood transfusions. Exercise / Class Metabolic Activity III < 4 Walking/Shop/Light housework (denies chest discomfort or shortness of breath with usual activities) Past Family History Family History Father Diabetes Past Surgical History Surgical History H/O cervical spine surgery C6-C7 ACDF with revision of C4-C6 fusion (from 2019) - limited looking up (has about 85% ROM looking up), and limited ROM to the left. H/O oral surgery History of anesthesia reaction "Head thrashing back and forth" after cholecystectomy-states was not seizure activity History of cholecystectomy History of left knee surgery History of neck surgery C4-6 ACDF (05/02/18): Grade view 1, Glidescope#4, ETT 7.5, atraumatic at [facility] Hx of wisdom tooth extraction PONV (postoperative nausea and vomiting) nausea Past Anesthesia History Difficult Airway and No Family Hx of Anesthesia Complications History of PONV History of PONV (denies needing scop patch, does well with IV pre-dosing ) and Hx of Motion Sickness Social History Smoking Status: Former smoker Do You Dip or Chew Tobacco: No Smoking End Date: quit 11/2023 Hx Alcohol Use: Yes alcohol intake frequency: a few times a month Hx Substance Use: No substance use type: does not use Review of Systems Patient denies chest pain, shortness of breath, dyspnea on exertion, fever, chills, cough, wheezing, or palpitations. Physical Exam Vital Signs Vitals BP 131/82 P 87 TEMP 98.4 SP02 97% on RA RESP 19 Physical Patient resting comfortably in chair in no acute distress, alert and oriented, responding appropriately throughout visit Full cervical extension range of motion without pain TMD < 3 finger breadths Mallampati Score 3 Dentition: one chipped tooth, denies loose teeth, caps/crowns, implants or bridges Lungs: normal respiratory effort. Good air movement, clear throughout to auscult ation, no adventitious breath sounds Cardiac: regular rate and rhythm, no murmurs noted Carotid arteries: negative bruit bilat Lab Results Anesthesia Preop Results Results Anesthesia Widget: WBC 12.82 K/ul (4.8-10.8) H 06/11/24 Hgb 13.1 g/dl (12.0-16.0) 06/11/24 Hct 37.4 % (37.0-47.0) 06/11/24 Plt 291 K/uL (130-400) 06/11/24 Na 137 mmol/L (136-145) 06/11/24 K 3.4 mmol/L (3.5-5.1) L 06/11/24 Cl 102 mmol/L (98-107) 06/11/24 CO2 28 mmol/L (21-32) 06/11/24 BUN 14 mg/dl (6-23) 06/11/24 Creat 0.73 mg/dl (0.6-1.2) 06/11/24 Glucose Level 122 mg/dl (70-99(Fasting)) H 06/11/24 PT 10.7 Seconds (9.0-12.0) 06/11/24 PTT 26 Seconds (21-31) 06/11/24 INR 1.0 (0.9-1.1) 06/11/24 HA1c 6.1 % (4.5-5.6) H 06/11/24 Urine Color Yellow 06/11/24 Urine Appearance Clear (Clear) 06/11/24 Urine pH 6.0 (4.5-7.5) 06/11/24 Urine Specific [place] 1.011 (1.000-1.030) 06/11/24 Urine Protein Negative (Negative) 06/11/24 Urine Glucose (UA) Negative (Negative) 06/11/24 Urine Ketones Negative (Negative) 06/11/24 Urine Blood Trace (Negative) H 06/11/24 Urine Nitrite Negative (Negative) 06/11/24 Urine Bilirubin Negative (Negative) 06/11/24 Urine Urobilinogen Negative (Negative) 06/11/24 Urine Leukocyte Esterase Negative (Negative) 06/11/24 Urine WBC (Auto) 0-5 /hpf (0-5) 06/11/24 Urine RBC (Auto) 3-5 /hpf (0-2) H 06/11/24 Urine Hyaline Casts (Auto) 0-2 /lpf (0-2) 06/11/24 Urine Epithelial Cells (Auto) 0-2 /hpf (0-2) 06/11/24 Urine Bacteria (Auto) None Seen (None Seen) 06/11/24 Blood Type O Positive 06/11/24 Antibody Screen NEGATIVE 06/11/24 Testing Electrocardiogram Date: 06/11/24 NSR, rate 78 bpm Chest X-Ray Date: 06/11/24 No acute findings. Other Testing Head and neck CTA 01/18/22 1. No acute intracranial hemorrhage, evidence of acute territorial infarction, or other acute intracranial disease process. 2. No occlusion, hemodynamically significant stenosis, or dissection in the major cervical arteries. 3. No occlusion, hemodynamically significant stenosis, aneurysm, dissection, or arteriovenous malformation in the major intracranial arteries. 4. Postsurgical changes are seen in the cervical spine.
[~2024-06-30 11:38] MED LIST changes: -ACETAMINOPHEN 500 MG TAB PO SCH; -ALLERGY Noted to ORDERED Medication SCH; -CeleBREX 200 MG CAP PO SCH; +DEXAMETHASONE SOD INJ 4 MG/ML VIAL ONE; -GABAPENTIN 900 MG DOSE PO SCH; +GLYCOPYRROLATE 0.2 MG/ML VIAL ONE; -LACTATED RINGER'S 1,000 ML IV SCH; +LIDOCAINE 2% 2 ML VIAL/AMP(20MG/ML) INFIL ONE; -LR 15ML/HR IV SCH; -LR 60ML/HR IV SCH; +MIDAZOLAM HCL 1 MG/ML 2ML VIAL ONE; +ONDANSETRON INJ 2 MG/ML 2 ML VIAL ONE; +PROPOFOL IV EMULSION 10 MG/ML 20 ML VIAL IV ONE; +ROCURONIUM BROMIDE 10 MG/ML 5 ML VIAL IV ONE; +SUGAMMADEX SODIUM 200 MG/2 ML VIAL IV ONE; +fentaNYL citrate PF 100 MCG/2 ML VIAL ONE
[2024-06-30] MEDS: LR 60ML/HR IV SCH (12:00)
[2024-06-30] MEDS: GABAPENTIN 900 MG DOSE PO SCH (12:00)
[2024-06-30] MEDS: CeleBREX 200 MG CAP PO SCH (12:01)
[2024-06-30] MEDS: LR 15ML/HR IV SCH (12:01)
[2024-06-30] MEDS: ACETAMINOPHEN 500 MG TAB PO SCH (12:01)
[2024-06-30] MEDS: VANCOMYCIN HCL 2,000 MG in SODIUM CHLORIDE 0.9% 500 ML IV SCH (12:09)
[2024-06-30] MEDS ORDERED: ATROPINE SULFATE 0.1 MG/ML 10ML SYR IV PRN (12:14)
[2024-06-30] MEDS ORDERED: ePHEDrine sulfate 50 MG/ML AMP IV PRN (12:14)
[2024-06-30] MEDS ORDERED: DROPERIDOL 5 MG/2 ML VIAL IV PRN (12:14)
--- NOTE | 2024-06-30 13:57 | History & Physical Bridge Note ---
Date of Service June 30, 2024 History & Physical Bridge Note I have examined the patient, reviewed the History & Physical and in the interval since the performance of the History & Physical I have noted the following changes of clinical significance: no changes noted
--- NOTE | 2024-06-30 13:59 | History & Physical Report ---
Date of Service June 30, 2024 Assessment & Plan (1) Two-level lumbosacral spondylosis with radiculopathy: Plan: L4-S1 decompression and fusion History of Present Illness Chief Complaint: Back and leg pain Primary Care Provider: Best Marie MD This is a 33-year-old female who presents chronic persistent back and leg pain and failing course of nonoperative care is here for surgical invention. Allergies Allergy/AdvReac Type Severity Reaction Status Date / Time cefaclor Allergy Severe Respiratory Verified 06/30/24 12:12 issues (as a premie baby) soap Allergy Intermediate Ivory Soap Verified 06/30/24 12:12 - Hives gabapentin AdvReac Severe Anger, Verified 06/30/24 12:12 crying, mood rage pregabalin AdvReac Severe anger, Verified 06/30/24 12:12 crying, mood rage Home Medications Medication Instructions Recorded Confirmed Type levonorgestrel 21 mcg/24 hr (up to 1 device intrauterine UD 03/27/18 06/30/24 History 8 years) 52 mg intrauterine device (Mirena) lurasidone 120 mg tablet (Latuda) 120 mg PO QDD 01/18/22 06/30/24 History clonazepam 1 mg tablet (Klonopin) 1 mg PO BID PRN Anxiety 05/14/23 06/30/24 History pantoprazole 40 mg tablet,delayed 40 mg PO QAM 12/10/23 06/30/24 History release (Protonix) bupropion HCl 100 mg tablet 100 mg PO QAM 12/16/23 06/30/24 History tizanidine 2 mg capsule (Zanaflex) 2 mg PO Q8H PRN Pain, muscle spasms 12/16/23 06/30/24 History doxepin 10 mg capsule 10 mg PO HS 12/25/23 06/30/24 History duloxetine 60 mg capsule,delayed 60 mg PO BID 05/29/24 06/30/24 History release (Cymbalta) lidocaine 4 % topical patch 1 patch topical DAILY PRN Pain 05/29/24 06/30/24 History (Salonpas (lidocaine)) metformin 500 mg tablet,extended 500 mg PO QAM 05/29/24 06/30/24 History release 24 hr Past Med/Surg History Problem List (Updated 06/30/24 @ 13:58 by Yevgeniy Rivera DO) Two-level lumbosacral spondylosis with radiculopathy Encounter for pre-operative examination Sciatica (Chronic) Medical History Anxiety Back pain Benign tumor of kidney Right - monitoring Bipolar disorder Cervical spinal stenosis Depression Fatty liver GERD (gastroesophageal reflux disease) controlled, stable per pt History of COVID-19 (10/26/23) Symptoms resolved Hx of migraines No issues x approximately 10 years Numbness and tingling in both hands CARMENCITA (obstructive sleep apnea) Recent dx per [facility] records, plan for future CPAP Prediabetes Taking Metformin Seasonal allergies Surgical History H/O cervical spine surgery C6-C7 ACDF with revision of C4-C6 fusion (from 2019) - limited looking up (has about 85% ROM looking up), and limited ROM to the left. H/O oral surgery History of anesthesia reaction "Head thrashing back and forth" after cholecystectomy-states was not seizure activity History of cholecystectomy History of left knee surgery History of neck surgery C4-6 ACDF (05/02/18): Grade view 1, Glidescope#4, ETT 7.5, atraumatic at [facility] Hx of wisdom tooth extraction PONV (postoperative nausea and vomiting) nausea Family History Father Diabetes Social History Smoking Status: Former smoker Tobacco Type: Cigarettes and E-cigarettes / Vaping Smoking End Date: quit 11/2023; Second Hand Exposure: No; Do You Dip or Chew Tobacco: No; Tobacco Cessation Education Requested by Patient: No Hx Alcohol Use: Yes Hx Substance Use: No Preferred Language: Kazakh Communication Ability: Effective Break Out Worker Required: No Beliefs That Will Affect Care: None marital status: Single Current Living Situation: Family Current Living Situation Comment: lives with dtr current occupational status: employed Other Information That Helps Us Care for You: No Feels Safe at Home: Yes Safety Concerns: Feels Safe At This Time Assistive Devices: Glasses Physical Exam Physical Exam: Patient is alert and oriented Heart regular rhythm lungs clear Results & Data Results & Data Vital Signs (Past 12 Hours) Vital Signs Temp Pulse Resp BP Pulse Ox O2 Del Method 06/30/24 12:00 37.1 C 103 H 20 155/94 H 96 Room Air
[2024-06-30] MEDS ORDERED: KETAMINE HCL 10MG/ML SYR ONE (14:27)
[2024-06-30] MEDS ORDERED: diphenhydrAMINE 50 MG/ML VIAL ONE (14:36)
[2024-06-30] MEDS ORDERED: fentaNYL citrate PF 100 MCG/2 ML VIAL ONE ×3 (14:43→16:48)
[2024-06-30] MEDS: BUPIVACAINE/EPINEPHRINE 0.25% 1:200,000 30 ML VIAL ONE (16:10)
[2024-06-30] MEDS: ceFAZolin 330 MG/ML 1 GM VIAL ONE (16:10)
[2024-06-30] MEDS: FLOSEAL HEMOSTATIC MATRIX 10ML TOP ONE (16:39)
--- NOTE | 2024-06-30 16:53 | Operative Report ---
Post Operative Report Pre & Post Diagnosis Operation Date: 06/30/24 13:30 Pre-Op Diagnosis: #1 lumbar spondylosis with radiculopathy #2 lumbar spinal stenosis #3 lumbar disc herniation with radiculopathy #4 obesity Post-Op Diagnosis: Same I identified the patient and participated in the time-out.: Yes Procedure Operation Date: 06/30/24 13:30 Actual Procedures #1 lumbar decompression bilaterally facetectomies and foraminotomies L3-L4, L4-5 and L5-S1. #2 posterior spinal fusion L4-L5 L5-S1. #3 placement posterior instrumentation L4-L5 S1 using camber. #4 interbody fusion L4-L5 L5-S1. #5 placement of Spira 15 x 26 mm x 2 at L4-5 and 14 x 26 mm x 2 at L5-S1. #6 placement locally harvested morselized autograft in the posterior gutters. #7 placement infuse collagen sponge, with Koros in the posterior lateral gutters and os design interbody space. #8 application of versa wrap of the exposed dura. Surgeon Yevgeniy Rivera, DO Rn Oncology Clinical Brisa Villar Estimated Blood Loss 500 Findings See Below The patient is 5 foot 10 weighing over 120 kg with a BMI in excess of 37. The patient is brought hips to contribute to significant technical difficulty with positioning exposure and the procedure itself and at least 50% increased operative time. Specimens None Indications This is a 33-year-old female presents above-mentioned diagnosis of failing since course of nonoperative care is here for the above-mentioned surgical procedure. Description of Procedure Patient is met with identified informed consent obtained. Patient was then taken to the operative suite underwent intubation placed in a prone position on the Suresh table atop the Rudi frame. All bony prominences well-padded eyes inspected to ensure no external pressure placed upon them. This point lumbar spine was prepped and draped in normal sterile fashion. Sharp dissection with the assistance of Bovie cautery from down to and exposing the lamina transverse processes of L 4 L5 and the sacral ala bilaterally. From a [place] fashion complete laminectomy of L5 was performed including bilateral medial facetectomies and foraminotomies addressing severe neural compression followed by complete laminectomy of L4 with bilateral medial facetectomies and foraminotomies again addressing severe neural compression and lastly partial laminectomy of L3 to decompress subarticular stenosis. Pedicle screws then placed in L4-L5 and S1 levels bilaterally with assistance of fluoroscopy and appropriate size paul placed. By way of transforaminal approach on the right a discectomy of L5-S1 was performed endplates corrected to subcortical bleeding bone and a 14 x 26 mm Spira cage filled with os design bone graft tapped in position. Then proceeded to the left transforaminal region L5-S1. Again discectomy performed. Endplates guided to subcortical bleeding bone and a second 14 x 26 mm spiral cage filled with os designed tapped in position. Then proceeded L4-L5 by way of transforaminal approach to the left discectomy was performed endplates corrected to subcortical bleeding bone and a 15 x 26 mm spiral cage filled with os design bone graft tapped in position. Then proceeded to the right transforaminal region at L4-5. Again discectomy performed. Endplates guided to subcortical bleeding bone and a second 15 x 26 mm spiral cage filled with os design bone graft tapped in position. The rods are then compressed locked in final position bilaterally. The transverse processes of L4-L5 and sacral ala burred to subcortical bleeding bone. Infuse collagen sponge, with Koros and local autograft placed in the posterior gutters. Versa wrap placed over the exposed dura. 15 round MAG drain inserted. The incision was then closed with 1 Vicryl the fascia 2-0 Vicryl subcutaneously and 4 Monocryl for final skin closure. Steri-Strips and sterile dressing placed. Patient was then awakened and taken the PACU stable condition. Please note Brisa Villar was present out the entire procedure and found the patient positioning complex portion of the surgery and final skin closure. I attest to the content of the Intraoperative Record and any orders documented therein. Any exceptions are noted below.
[2024-06-30] MEDS: PROMETHAZINE HCL 6.25 MG in SODIUM CHLORIDE 0.9% 50 ML IV PRN (17:24)
[2024-06-30] MEDS: SODIUM CHLORIDE 0.9% 50 ML BAG ONE (17:24)
[2024-06-30] MEDS: PROMETHAZINE HCL INJ 25 MG/ML 1 ML VIAL ONE (17:24)
[2024-06-30] MEDS: HYDROmorphone INJ 2 MG/ML SYR/VIAL IV PRN (17:25)
[2024-06-30] MEDS ORDERED: ONDANSETRON INJ 2 MG/ML 2 ML VIAL IV PRN (18:29)
[2024-06-30] MEDS ORDERED: METOCLOPRAMIDE HCL INJ 5 MG/ML 2 ML VIAL IV PRN (18:29)
[2024-06-30] MEDS ORDERED: ALUMINUM/MAGNESIUM SUSP 30 ML UDC PO PRN (18:29)
[2024-06-30] MEDS ORDERED: FAMOTIDINE 20 MG TAB PO PRN (18:29)
[2024-06-30] MEDS ORDERED: ACETAMINOPHEN 1,000 MG/100 ML VIAL IV PRN (18:29)
[2024-06-30] MEDS ORDERED: PROMETHAZINE 12.5 MG/50.5 ML BAG IV PRN (18:29)
[2024-06-30] MEDS ORDERED: NALOXONE HCL 0.4 MG/1 ML VIAL/CARP IV PRN (18:29)
[2024-06-30] MEDS ORDERED: MAGNESIUM HYDROXIDE SUSP 30 ML UDC PO PRN (18:29)
[2024-06-30] MEDS ORDERED: LORazepam 0.5 MG TAB PO PRN (18:29)
[2024-06-30] MEDS ORDERED: hydrOXYzine HCl 25 MG TAB PO PRN (18:29)
[2024-06-30] MEDS ORDERED: ONDANSETRON 4 MG OD TAB PO PRN (18:29)
[2024-06-30] MEDS ORDERED: HYDROmorphone INJ 0.5 MG/0.5 ML SYR IV PRN (18:29)
[2024-06-30] MEDS ORDERED: clonazePAM 1 MG TAB PO PRN (18:29)
[2024-06-30] MEDS ORDERED: DO NOT ADMINISTER PNEUMOCOCCAL VACCINE PRN (18:29)
[2024-06-30] MEDS ORDERED: SOD PHOSPHATE/SOD BIPHOSPHATE ENEMA 132 ML BTL PR PRN (18:29)
[2024-06-30] MEDS ORDERED: DO NOT ADMINISTER FLU VACCINE PRN (18:29)
[2024-06-30] MEDS ORDERED: LORazepam 2 MG/1 ML VIAL IV PRN (18:29)
[2024-06-30] MEDS ORDERED: traMADol HCL 50 MG TABLET PO PRN (18:29)
[2024-06-30] MEDS ORDERED: PHARMACY GLYCEMIC MGMT CONSULT PRN (18:29)
[2024-06-30] MEDS ORDERED: diphenhydrAMINE Capsule 25 MG CAP PO PRN (18:29)
[2024-06-30] MEDS ORDERED: bisacodyL 10 MG SUPP PR PRN (18:29)
[2024-06-30] MEDS ORDERED: LEVONORGESTREL (MIRENA) IUD PV SCH (19:00)
[2024-06-30] MEDS ORDERED: GLUCOSE 40% GEL 15 GM TUBE PO PRN (19:15)
[2024-06-30] MEDS ORDERED: CARBOHYDRATES FOR HYPOGLYCEMIA PO PRN (19:15)
[2024-06-30] MEDS ORDERED: GLUCAGON FOR INJ 1 MG VIAL SQ PRN (19:15)
[2024-06-30] MEDS ORDERED: DEXTROSE 50% 50 ML SYRINGE IV PRN (19:15)
[2024-06-30] MEDS ORDERED: GLUCOSE 10 TAB/TUBE PO PRN (19:15)
--- NOTE | 2024-06-30 19:55 | Anesthesiology Progress Note ---
Date of Service June 30, 2024 Anesthesia Post Procedure Vital Signs Vital Signs: Temp Pulse Pulse Resp BP Pulse Ox O2 Del Method 06/30/24 18:25 37.0 C 107 H 18 133/70 95 Nasal Cannula 06/30/24 18:05 36.8 C 100 H 13 143/88 H 96 Nasal Cannula 06/30/24 17:55 98 H 12 123/86 94 Nasal Cannula 06/30/24 17:45 100 H 13 135/82 96 Nasal Cannula 06/30/24 17:35 99 H 21 129/83 92 Oxymask 06/30/24 17:25 103 H 17 145/82 H 95 Oxymask 06/30/24 17:15 104 H 22 127/72 95 Oxymask 06/30/24 17:09 36.4 C L 112 H 16 135/82 96 Oxymask 06/30/24 12:00 37.1 C 103 H 20 155/94 H 96 Room Air O2 Flow Rate 06/30/24 18:25 3 06/30/24 18:05 3 06/30/24 17:55 4 06/30/24 17:45 4 06/30/24 17:35 11 06/30/24 17:25 11 06/30/24 17:15 11 06/30/24 17:09 11 06/30/24 12:00 Pain Intensity Lower Back: Pain Intensity: 3 Back: Pain Intensity: 5 Transfer of Care Handoff Completed per policy Notes Mental Status: alert / awake / arousable Patient Amnestic to Procedure: Yes Nausea / Vomiting: adequately controlled Pain: adequately controlled Airway Patency, RR, SpO2: stable & adequate BP & HR: stable & adequate Hydration State: stable & adequate Anesthetic Complications: no major complications apparent
[2024-06-30] MEDS: DOCUSATE SODIUM/SENNA 50/8.6MG TAB PO SCH (20:50)
[2024-06-30] MEDS: DOXEPIN HCL 10 MG CAPSULE PO SCH (20:51)
[2024-06-30] MEDS: DULoxetine HCL 60 MG CAP PO SCH (20:52)
[2024-06-30] MEDS: oxyCODONE HCL IR 5 MG TAB (IMMEDIATE RELEASE) PO PRN (20:52)
[2024-06-30] MEDS: INSULIN ASPART PER UNIT CHARGE SC SCH (20:53)
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
--- OUTSIDE RECORDS SUMMARY | 2024-06-30 21:28 | External Medical Summary | Summary of Care ---
Author Name Unknown Organization [facility] Address [address] [place] [address] Phone [phone] Care Team Providers Care Career Development Manager Name Role Phone AugustBest MD Primary Care Provider [phone] Encounter Details Date Type Department Care Team (Late st Contact Info) Description 06/16/[address] [facility] [address] [phone] AugustBest MD [address] [id number] Allergies Active Allergy Reactions Criticality Noted Date Comments Cefaclor Other (Please comment) High 05/16/2023 Respiratory distress as preemie documented as of this encounter (statuses as of 06/16/2024) Medications Levonorgestrel 20 MCG/DAY Intrauterine Intrauterine Device (Mirena) Insert 1 Each into uterus once. Active Lurasidone HCl 120 MG Oral Tablet (Latuda) Take 1 Tablet by mouth in the morning. 30 Tablet 3 4 Active Methocarbamol 500 MG Oral Tablet (Robamol)Indicat ions:Cervical pain (neck),DDD (degenerative disc disease), cervical Take 1 Tablet by mouth in the morning and 1 Tablet at noon and 1 Tablet before bedtime. For muscle spasm. 30 Tablet 3 4 Active Additional Information Patient not taking.Reported on 06/15/2024 Pantoprazole Sodium 40 MG Oral Tablet Delayed [...] EVERY MORNING 30 Capsule 1 5 Active tiZANidine HCl 4 MG Oral Tablet (Zanaflex)Indica tions:Cervical pain (neck),DDD (degenerative disc disease), cervical Take 1 Tablet by mouth every 6 hours as needed for Muscle spasms. 30 Tablet 5 Active oxyCODONE HCl 5 MG Oral Tablet (Oxy IR)Indications:L umbar back pain Take 1 Tablet by mouth every 6 hours as needed for Pain, Breakthrough. 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 (Household - for ages [...] AM EDT documented as of this encounter Plan of Treatment Upcoming Encounters Date Type Department Care Team (Late st Contact Info) Description 06/23/2024 11:40 AM EDT Office Visit [facility], Tal[address] Ar[address] [phone] Best Marie MD [address] [address] 08/19/2024 10:00 AM EDT Office Visit Gynecology/Obstetrics Sarah Ramsay [address] [place] [address] Jeny Mcconnell MD [address] [place] [address] Health Maintenance Due Date Last Done Comments [...] Procedure Name Priority Date/Time Associated Diagnosis Comments XR CHEST 2 VIEWS Routine 06/11/2024 CHEMISTRY-OUTSIDE Routine 06/11/2024 HEMOGLOBIN A1C Routine 06/11/2024 documented in this encounter Results * (ABNORMAL) HEMOGLOBIN A1C (06/11/2024) HEMOGLOBIN, [id number] LAB 6.1(A) 4.5 - 5.6 % OUTSIDE LAB (SEE SCANNED REPORT) Blood Venous blood specimen / Unknown 06/11/2024 Tonya Mejía PA-C LAB BLOOD ORDERABLES Final Result OUTSIDE LAB (SEE SCANNED REPORT) * (ABNORMAL) CHEMISTRY-OUTSIDE (06/11/2024) Not all results display below - see scan for full detail OUTSIDE LAB (SEE SCANNED REPORT) Comment:SCAN INCLUDES - PREA DMISSION TESTING: CBCD, BMP, PT, INR, PTT, UA CREATININE 0.73 0.6 - 1.2 MG/DL OUTSIDE LAB (SEE SCANNED REPORT) EGFR 109.92 OUTSIDE LA B (SEE SCANNED REPORT) POTASSIUM 3.4(A) 3.5 - 5.1 MMOL/L OUTSIDE LAB (SEE SCANNED REPORT) GLUCOSE 122(A) 70 - 99 MG/DL OUTSIDE LAB (SEE SCANNED REPORT) HOURS FASTING OUTSID E LAB (SEE SCANNED REPORT) TRIGLYCERIDES-OU TSIDE LAB OUTSIDE LAB (SEE SCANNED REPORT) CHOLESTEROL-OUTS JESSICA LAB OUTSIDE LAB (SEE SCANNED REPORT) HDL-OUTSIDE LAB OUTS JESSICA LAB (SEE SCANNED REPORT) CHOL/HDL RATIO-OUTSIDE LAB OUTSIDE LAB (SEE SCANNED REPORT) LDL (CALCULATED)-OUT SIDE LAB OUTSIDE LAB (SEE SCANNED REPORT) LDL (DIRECT MEASURE)-OUTSIDE LAB OUTSIDE LAB (SEE SCANNED REPORT) HEMOGLOBIN, [id number] LAB OUTSIDE LAB (SEE SCANNED REPORT) PHOSPHORUS-OUTSI DE LAB OUTSIDE LAB (SEE SCANNED REPORT) PTH-OUTSIDE LAB OUTS JESSICA LAB (SEE SCANNED REPORT) MICROALBUMIN RATIO-OUTSIDE LAB OUTSIDE LAB (SEE SCANNED REPORT) PROTEIN, UA-OUTSIDE LAB NEGATIVE NEGATIVE OUTSIDE LAB (SEE SCANNED REPORT) HGB 13.1 12.0 - 16.0 G/DL OUTSIDE LAB (SEE SCANNED REPORT) 06/11/2024 us Yevgeniy Rivera DO LABORATORY Fin al Result OUTSIDE LAB (SEE SCANNED REPORT) * XR CHEST 2 VIEWS (06/11/2024) Anatomical Region Laterality Modality Chest Other 06/11/2024 us Yevgeniy Rivera DO RADIOLOGY (RAD GENE RAL) Final Result documented in this encounter Care Teams Career Development Manager Relationship Specialty Start Date End Date August, Best Lam MD [address] [facility] [address] [place] [phone] PCP - General Family Medicine 05/12/24 documented as of this encounter
--- OUTSIDE RECORDS SUMMARY | 2024-06-30 21:28 | External Medical Summary | Summary of Care ---
Author Name Unknown Organization [facility] Address [address] [place] [address] Phone [phone] Care Team Providers Care Reception Clerk Name Role Phone AugustBest MD Primary Care Provider [phone] Reason for Visit * Reason Comments Emergency Department Follow-Up Encounter Details Date Type Department Care Team (Late st Contact Info) Description 06/15/2024 12:40 PM EDT Office Visit Formerly Named [facility] [address] [address] Best Marie MD [address] [facility] [address] [place], [place] [id number] Lumbar back pain*; Class 2 severe obesity due to excess calories with serious comorbidity and body mass index (BMI) of 38.0 to 38.9 in adult (HCC) Allergies Active Allergy Reactions Criticality Noted Date Comments Cefaclor Other (Please comment) High 05/16/2023 Respiratory distress as preemie documented as of this encounter (statuses as of 06/15/2024) Medications Levonorgestrel 20 MCG/DAY Intrauterine Intrauterine Device (Mirena) Insert 1 Each into uterus once. Active Lurasidone HCl 120 MG Oral Tablet (Latuda) Take 1 Tablet by mouth in the morning. 30 Tablet 3 03/09/20 24 Active Methocarbamol 500 MG Oral Tablet (Robamol)Indica tions:Cervical pain (neck),DDD (degenerative disc disease), cervical Take 1 Tablet by mouth in the morning and 1 Tablet at noon and 1 Tablet before bedtime. For muscle spasm. 30 Tablet 3 03/12/20 24 Active Additional Information Patient not taking.Reported on 06/15/2024 Pantoprazole Sodium 40 MG Oral Tablet Delayed Release (Protonix)Indic ations:Gastroes ophageal reflux disease without esophagitis TAKE 1 TABLET BY MOUTH EVERY MORNING 30 Tablet 5 05/08/19 25 Active Doxepin HCl 10 MG Oral Capsule (SINEquan) TAKE 1 CAPSULE BY MOUTH AT BEDTIME NEEDED FOR INSOMNIA 30 Capsule 1 05/08/19 25 Active buPROPion HCl ER (SR) 100 MG Oral Tablet Extended Release 12 Hour (Wellbutrin SR) TAKE 1 TABLET BY MOUTH EVERY MORNING 30 Tablet 1 05/08/19 25 Active clonazePAM 1 MG Oral Tablet (KlonoPIN) Take 1 Tablet by mouth 2 times a day as needed for Anxiety. 60 Tablet 1 05/08/19 25 Active DULoxetine HCl 60 MG Oral Capsule Delayed Release Particles (Cymbalta) TAKE 1 CAPSULE BY MOUTH EVERY MORNING 30 Capsule 1 05/22/19 25 Active tiZANidine HCl 4 MG Oral Tablet (Zanaflex)Indic ations:Cervical pain (neck),DDD (degenerative disc disease), cervical Take 1 Tablet by mouth every 6 hours as needed for Muscle spasms. 30 Tablet 06/02/19 25 Active oxyCODONE HCl 5 MG Oral Tablet (Oxy IR)Indications: Lumbar back pain Take 1 Tablet by mouth every 6 hours as needed for Pain, Breakthrough. 60 Tablet 06/16/19 25 Active Escitalopram Oxalate 10 MG Oral Tablet (Lexapro) One tablet a day (10 mg) for one month, then half a tablet a day (5 mg) for another month, then discontinue 30 Tablet 1 02/19/20 24 025 Discontinued methylPREDNISol one 4 MG Oral Tablet Therapy Pack (Medrol Dosepack)Indica tions:DDD (degenerative disc disease), cervical follow package directions 21 Tablet 04/27/19 25 025 Discontinued documented as of this encounter (statuses as of 06/15/2024) Active Problems Problem Noted Date Diagnosed Date Class 2 severe obesity due t o excess calories with serious comorbidity and body mass index (BMI) of 38.0 to 38.9 in adult 06/15/2024 [facility] OTHER*[id number] 11/06/2023 Dysplasia of cervix, high grade ALIYAH 2 10/04/2023 Prediabetes 05/24/2023 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 Gastroesophageal reflux disease without esophagi tis 02/19/2023 Class 2 obesity without seri ous comorbidity with body mass index (BMI) of 36.0 to 36.9 in adult 02/15/2023 Tobacco use 04/26/2022 Bipolar 2 disorder documented as of this encounter (statuses as of 06/15/2024) Resolved Problems Problem Noted Date Diagnosed Date [...] as of this encounter (statuses as of 06/15/2024) Immunizations Name Administration Dates Next Due Seasonal [...] Sign Reading Time Taken Comments Blood Pressure 132/88 06/15/2024 12:36 PM EDT Pulse 89 06/15/2024 12:36 PM EDT Temperature 36.5 C (97.7 F) 06/15/2024 12:36 PM E DT Respiratory Rate 16 06/15/2024 12:36 PM EDT Oxygen Saturation - - Inhaled Oxygen Concentration - - Weight 120.2 kg (265 lb) 06/15/2024 12:36 PM EDT Height - - Body Mass Index 38.02 11/20/2023 5:42 PM EDT documented in this encounter Progress Notes * Best Marie MD - 06/15/2024 1:02 PM EDT Images from the original note were not included. Subjective Karol Faustin is a 33 year old female that presents for Emergency Department Follow-Up History of Present Illness The patient, a 33-year-old with a past medical history of prediabetes, obesity, GERD, and bipolar two disorder, presents for a follow-up after an emergency room visit. The patient reports severe backpain, which has been diagnosed as due to herniated discs. The patient was seen at [facility] on June 10, 2024, and an MRI was performed. The patient reports that the MRI showed that the lumbar discs 3-4, 4-5, and 5-1 are completely blown out. The patient has been taken off work dueto the severity of the pain. The patient reports that the pain is similar to severe sciatica and has been managing the pain with morphine and oxycodone. The patient also reports a history of neck andshoulder pain, which the doctor believes may be due to the herniated discs and suspected fibromyalgi a. The patient's cervical spine appears stable, but there has been some loss of curve due to the fusion of four discs. Objective BP 132/88 | Pulse 89 | Temp 97.7 F (36.5 C) | Resp 16 | Wt 265 lb (120.2 kg) | BMI 38.02 kg/m | BSA 2.44 m Physical Exam Physical Exam Vitals reviewed. Constitutional: General: She is not in acute distress. Pulmonary: Effort: Pulmonary effort is normal. No respiratory distress. Neurological: General: No focal deficit present. Mental Status: She is alert. Results RADIOLOGY Lumbar spine MRI: Herniated discs at L4-L5, L5-S1, and L3-L4 with complete disc extrusion at L3-L4 (06/10/2024) Cervical spine MRI: Stable cervical spine with good fusion and loss of cervical lordosis (06/10/2024) Chest x-ray: Normal DIAGNOSTIC ECG: Normal Assessment and Plan Assessment & Plan Lumbar disc herniation Three herniated discs at L3-4, L4-5, and L5-S1 with significant pain and functional impairment. MRIconfirmed severity. Surgery planned due to complete herniation and lack of improvement with conservative management. Discussed risks of not addressing L3-4 herniation. - Prescribe oxycodone 5 mg, 4 times a day as needed for 15 days. - Advise bowel regimen to prevent constipation. - Encourage adequate hydration. - Plan for lumbar surgery on June 30, 2024. Cervical spine fusion Cervical spine fusion with loss of curvature. No current indication for surgical intervention. Painattributed to inflammation and suspected fibromyalgia. Fibromyalgia (suspected) Suspected fibromyalgia contributing to neck and shoulder pain. Inflammation from lumbar disc herniation may exacerbate symptoms. Prediabetes Prediabetes present. Obesity Obesity present. Gastroesophageal reflux disease (GERD) GERD present. Bipolar II disorder Bipolar II disorder present. Follow-up Pre-operative appointment scheduled for June 23, 2024, for surgical clearance. EKG, blood work, and chest X-ray completed. - Schedule pre-operative appointment on June 23, 2024. Lumbar back pain (Primary) - oxyCODONE HCl 5 MG Oral Tablet (Oxy IR); Take 1 Tablet by mouth every 6 hours as needed for Pain,Breakthrough. Class 2 severe obesity due to excess calories with serious comorbidity and body mass index (BMI) of38.0 to 38.9 in adult (HCC) - recommend 30 minutes of exercise 5 days weekly and mediterranean/dash diet to help achieve goal weight Wrap-Up Follow Up: Return if symptoms worsen or fail to improve. Text in this note was generated using an ambient documentation service. I discussed the use of a device to record and summarize our discussion today. All persons present during the encounter consented to its use. documented in this encounter Nursing Notes * Angela Tyler LPN - 06/15/2024 12:36 PM EDT The patient has been properly identified by confirmation of name and date of . Chief Complaint Patient presents with Emergency Department Follow-Up documented in this encounter Plan of Treatment Upcoming Encounters Date Type Department Care Team (Late st Contact Info) Description 06/23/2024 11:40 AM EDT Office [facility] [address] [place] [address] Best Marie MD [address] [facility] [place] [address] 08/19/2024 10:00 AM EDT Office Visit Gynecology/Obstetrics [facility] [address] [place] [address] Jeny Mcconnell MD [address] [employer] [address] [place] [address] Health Maintenance Due Date Last Done Comments Pneumococcal Vaccine: Pediatrics (0 to 5 Years) and At-Risk Patients (6 to 18 Years and 19+ Years) (1 of 2 - PCV) 11/20/2007 DTap/Tdap Vaccines (2 - Td or Tdap) 11/13/2021 11/14/2011 COVID-19 Vaccine ( - 2023- season) 2023 Depression Monitoring 02/27/2024 02/26/2023 HbA1c 05/23/2024 05/23/2023 [...] as of this encounter Visit Diagnoses Diagnosis Lumbar back pain- Primary Lumbago Class 2 severe obesity due to excess calories with serious comorbidity and body mass index (BMI) of 38.0 to 38.9 in adult (HCC) documented in this encounter Care Teams Reception Clerk Relationship Specialty Start Date End Date August, Best Lam MD [address] [address] PCP - General Family Medicine 05/12/24 documented as of this encounter"
--- OUTSIDE RECORDS SUMMARY | 2024-06-30 21:28 | External Medical Summary | Summary of Care ---
Author Name Unknown Organization [facility] Address [address] [place] [address] Phone [phone] Care Team Providers Care Contact Finger Assembler Name Role Phone AugustBest MD Primary Care Provider [phone] Reason for Visit * Reason Onset Date Comments Nurse Documentation 06/25/2024 Encounter Details Date Type Department Care Team (Late st Contact Info) Description 06/25/[address] [facility] [address] [place] [address] AugustBest MD [address] [place] [address] Nurse Documentation Allergies Active Allergy Reactions Criticality Noted Date Comments Cefaclor Other (Please comment) High 05/16/2023 Respiratory distress as preemie documented as of this encounter (statuses as of 06/29/2024) Medications Levonorgestrel 20 MCG/DAY Intrauterine Intrauterine Device (Mirena) Insert 1 Each into uterus once. Active Lurasidone HCl 120 MG Oral Tablet (Latuda) Take 1 Tablet by mouth in the morning. 30 Tablet 3 4 Active Pantoprazole Sodium 40 MG Oral Tablet Delayed Release (Protonix)Indicat ions:Gastroesopha geal reflux disease without esophagitis TAKE 1 TABLET BY MOUTH EVERY MORNING 30 Tablet 5 5 Active Doxepin HCl 10 MG Oral Capsule (SINEquan) TAKE 1 CAPSULE BY MOUTH AT BEDTIME NEEDED FOR INSOMNIA 30 Capsule 1 5 Active clonazePAM 1 MG Oral Tablet (KlonoPIN) Take 1 Tablet by mouth 2 times a day as needed for Anxiety. 60 Tablet 1 5 Active DULoxetine HCl 60 MG Oral Capsule Delayed Release Particles (Cymbalta) TAKE 1 CAPSULE BY MOUTH EVERY MORNING 30 Capsule 1 5 Active oxyCODONE HCl 5 MG Oral Tablet (Oxy IR)Indications:Brittany mbar back pain Take 1 Tablet by mouth every 6 hours as needed for Pain, Breakthrough. 60 Tablet 5 Active tiZANidine HCl 4 MG Oral Tablet (Zanaflex)Indicat ions:Cervical pain (neck),DDD (degenerative disc disease), cervical Take 1 Tablet by mouth every 6 hours as needed for Muscle spasms. 30 Tablet 5 Active metFORMIN HCl ER 500 MG Oral Tablet Extended Release 24 Hour (Glucophage XR)Indications:Pr ediabetes Take 1 Tablet by mouth in the morning. In the morning.. 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 Gastroesophageal reflux disease without esophagi tis 02/19/2023 Class 2 obesity without seri ous comorbidity with body mass index (BMI) of 36.0 to 36.9 in adult 02/15/2023 Tobacco use 04/26/2022 Bipolar 2 disorder documented as of this encounter (statuses as of 06/29/2024) Resolved Problems Problem Noted Date Diagnosed Date Resolved Date Food insecurity 05/18/2024 06/15/2024 Overview: Per [facility] Protocol Food insecurity 02/18/2023 08/21/2023 [...] as of this encounter (statuses as of 06/29/2024) Immunizations Name Administration Dates Next Due Seasonal [...] AM EDT documented as of this encounter Miscellaneous Notes * Telephone Encounter - Tigist Brush MED ASSIST - 06/29/2024 1:05 PM EDT Form faxed. * Telephone Encounter - Best Marie MD - 06/26/2024 5:09 PM EDT Form completed. Ready for faxing. Best Marie MD * Telephone Encounter - Luh Lama OSA - 06/25/2024 1:10 PM EDT Today pt dropped off forms for dr. Marie to sign and fill it out. It is for the pt surgery that she is having on 06/30. Put in providers mailbox documented in this encounter Plan of Treatment Upcoming Encounters Date Type Department Care Team (Late st Contact Info) Description 08/19/2024 10:00 AM EDT Office Visit Gynecology/Obstetrics [facility] [address] [address] Jeny Mcconnell MD [address] [place] [address] Health Maintenance Due Date Last Done Comments [...] Not on filedocumented as of this encounter Care Teams Contact Finger Assembler Relationship Specialty Start Date End Date August, Best Lam MD [address] [address] PCP - General Family Medicine 05/12/24 documented as of this encounter
--- OUTSIDE RECORDS SUMMARY | 2024-06-30 21:28 | External Medical Summary | Summary of Care ---
Author Name Unknown Organization [facility] Address [address] [place] [address] Phone [phone] Care Team Providers Care Habilitation Worker Name Role Phone Best Marie MD Primary Care Provider [phone] Reason for Visit * Reason Comments eRx-Medication Refill Encounter Details Date Type Department Care Team (Late st Contact Info) Description 06/26/2024 [facility] [address] [place] [address] Hailey Vick DO [address] [place] [address] Allergies Active Allergy Reactions Criticality Noted Date Comments Cefaclor Other (Please comment) High 05/16/2023 Respiratory distress as preemie documented as of this encounter (statuses as of 06/26/2024) Medications Levonorgestrel 20 MCG/DAY Intrauterine Intrauterine Device (Mirena) Insert 1 Each into uterus once. Active Lurasidone HCl 120 MG Oral Tablet (Latuda) Take 1 Tablet by mouth in the morning. 30 Tablet 3 03/09/20 24 Active Pantoprazole Sodium 40 MG Oral Tablet Delayed Release (Protonix)Indica tions:Gastroesop hageal reflux disease without esophagitis TAKE 1 TABLET BY MOUTH EVERY MORNING 30 Tablet 5 05/08/19 25 Active Doxepin HCl 10 MG Oral Capsule (SINEquan) TAKE 1 CAPSULE BY MOUTH AT BEDTIME NEEDED FOR INSOMNIA 30 Capsule 1 05/08/19 25 Active clonazePAM 1 MG Oral Tablet (KlonoPIN) Take 1 Tablet by mouth 2 times a day as needed for Anxiety. 60 Tablet 1 05/08/19 25 Active DULoxetine HCl 60 MG Oral Capsule Delayed Release Particles (Cymbalta) TAKE 1 CAPSULE BY MOUTH EVERY MORNING 30 Capsule 1 05/22/19 25 Active oxyCODONE HCl 5 MG Oral Tablet (Oxy IR)Indications:L umbar back pain Take 1 Tablet by mouth every 6 hours as needed for Pain, Breakthrough . 60 Tablet 06/16/19 25 Active tiZANidine HCl 4 MG Oral Tablet (Zanaflex)Indica tions:Cervical pain (neck),DDD (degenerative disc disease), cervical Take 1 Tablet by mouth every 6 hours as needed for Muscle spasms. 30 Tablet 06/24/19 25 Active metFORMIN HCl ER 500 MG Oral Tablet Extended Release 24 Hour (Glucophage XR)Indications:P rediabetes Take 1 Tablet by mouth in the morning. In the morning.. 90 Tablet 3 06/24/19 25 Active buPROPion HCl ER (SR) 100 MG Oral Tablet Extended Release 12 Hour (Wellbutrin SR) TAKE 1 TABLET BY MOUTH EVERY MORNING 30 Tablet 1 06/27/19 25 Active buPROPion HCl ER (SR) 100 MG Oral Tablet Extended Release 12 Hour (Wellbutrin SR) TAKE 1 TABLET BY MOUTH EVERY MORNING 30 Tablet 1 05/08/19 25 025 Discontinued documented as of this encounter (statuses as of 06/26/2024) Active Problems Problem Noted Date Diagnosed Date Class 2 severe obesity due t o excess calories with serious comorbidity and body mass index (BMI) of 38.0 to 38.9 in adult 06/15/2024 [facility] OTHER*[id number] 11/06/2023 Dysplasia of cervix, high grade ALIYAH 2 10/04/2023 Prediabetes 05/24/2023 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 (Household - for [...] encounter Miscellaneous Notes * Telephone Encounter - Hailey Vick DO - 06/26/2024 11:55 AM EDTSigned Prescriptions: Disp Refills buPROPion HCl ER (SR) 100 MG Oral Tablet E*30 Tab*1 Sig: TAKE 1 TABLET BY MOUTH EVERY MORNINGAuthorizing Provider: HAILEY VICK * Telephone Encounter - Sol Vergara OSA - 06/26/2024 10:26 AM EDTPending Prescriptions: Disp Refills buPROPion HCl ER (SR) 100 MG Oral Tablet E*30 Tab*1 Sig: TAKE 1 TABLET BY MOUTH EVERY MORNING * Telephone Encounter - Samantha Reyes CRNP - 06/26/2024 10:14 AM EDT Pending Prescriptions: Disp Refills buPROPion HCl ER (SR) 100 MG Oral Tablet E*30 Tab*1 Sig: TAKE 1TABLET BY MOUTH EVERY MORNING documented in this encounter Plan of Treatment Upcoming Encounters Date Type Department Care Team (Late st Contact Info) Description 08/19/2024 10:00 AM EDT [facility] [address] [address] Jeny Mcconnell MD [address] [address] Health Maintenance Due Date Last Done Comments [...] filedocumented as of this encounter Care Teams Habilitation Worker Relationship Specialty Start Date End Date August, Best Lam MD [address] [address] PCP - General Family Medicine 05/12/24 documented as of this encounter
--- OUTSIDE RECORDS SUMMARY | 2024-06-30 21:28 | External Medical Summary | Summary of Care ---
Author Name Unknown Organization [facility] Address [address] [place] [address] Phone [phone] Care Team Providers Care Special Population Paraprofessional Name Role Phone AugustBest MD Primary Care Provider [phone] Reason for Visit * Reason Onset Date Comments Medication Refill 06/16/2024 Encounter Details Date Type Department Care Team (Late st Contact Info) Description 06/16/2024 Refill [facility] [address] [address] AugustBest MD [address] [facility] [place] [address] Cervical pain (neck); DDD (degenerative disc disease), cervical Allergies Active Allergy Reactions Criticality Noted Date Comments Cefaclor Other (Please comment) High 05/16/2023 Respiratory distress as preemie documented as of this encounter (statuses as of 06/17/2024) Medications Levonorgestrel 20 MCG/DAY Intrauterine Intrauterine Device [...] as of this encounter (statuses as of 06/17/2024) Active Problems Problem Noted Date Diagnosed Date Class 2 severe obesity due t o excess calories with serious comorbidity and body mass index (BMI) of 38.0 to 38.9 in adult 06/15/2024 [facility] OTHER*[id number] 11/06/2023 Dysplasia of cervix, high grade ALIYAH 2 10/04/2023 Prediabetes 05/24/2023 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 (Household - for ages [...] encounter Miscellaneous Notes * Telephone Encounter - Bernabe Edwin - 06/16/2024 7:08 PM EDTRefused Prescriptions: Disp Refills tiZANidine HCl 4 MG Oral Tablet (Zanaflex) 30 Tab*0 Sig: Take 1Tablet by mouth every 6 hours as needed for Muscle spasms.Refused By: Jerad KIDDon for Refusal: Duplicate Request documented in this encounter Plan of Treatment Upcoming Encounters Date Type Department Care Team (Late st Contact Info) Description 06/23/2024 11:40 AM EDT Office Visit [facility] [address] [phone] AugustBest MD [address] [facility] [place] [address] 08/19/2024 10:00 AM EDT Office Visit Gynecology/Obstetrics [facility] [address] [place] [address] Jeny Mcconnell MD [address] [place] [address] Health Maintenance Due Date Last Done Comments Pneumococcal Vaccine: Pediatrics (0 to 5 Years) and At-Risk Patients (6 to 18 Years and 19+ Years) (1 of 2 - PCV) 11/20/2007 DTap/Tdap Vaccines (2 - Td or Tdap) 11/13/2021 11/14/2011 COVID-19 Vaccine ( - season) 2023 Depression Monitoring 02/27/2024 02/26/2023 [...] as of this encounter Visit Diagnoses Diagnosis Cervical pain (neck) Cervicalgia DDD (degenerative disc disease), cervical Degeneration of cervical intervertebral disc documented in this encounter Care Teams Special Population Paraprofessional Relationship Specialty Start Date End Date August, Best Lam MD [address] [facility] [address] [place] [address] PCP - General Family Medicine 05/12/24 documented as of this encounter
[2024-06-30] MEDS: CLINDAMYCIN/D5W 600 MG/50 ML BAG IV SCH (23:29)
[2024-07-01] MEDS: HYDROmorphone INJ 1 MG/ML SYRINGE IV PRN (00:05)
[2024-07-01] MEDS: POLYETHYLENE (MIRALAX) 17 GM PACK PO SCH (06:19)
[2024-07-01] MEDS: KETOROLAC 30 MG/ML VIAL IV PRN (07:57)
[2024-07-01] MEDS: dexAMETHasone 6 MG in SYRINGE 0 ML IV SCH (07:58)
[2024-07-01] MEDS: PANTOprazole 40 MG TAB PO SCH (07:58)
[2024-07-01] MEDS: tiZANidine HCL 4 MG TABLET PO PRN (07:58)
[2024-07-01] MEDS: buPROPion HCl 100 MG TABLET PO SCH (07:59)
--- NOTE | 2024-07-01 09:21 | Pharmacy Report ---
Pharmacy Glycemic Short Note 2 - Date of Service July 01, 2024 - Glycemic Short BSG Results (Last 24 hours): 06/30/24 06/30/24 06/30/24 12:16 17:12 19:49 POC Glucose 103 H 127 H 171 H 07/01/24 07:28 POC Glucose 150 H OUTPATIENT ANTIDIABETIC REGIMEN: * metformin ER 500mg QAM HbA1c: 6.1% on 06/11/24 ASSESSMENT: * 33 year old female admitted 06/30 for L4-S1 decompression and fusion. Pharmacy has been consulted for glycemic management postop. * Preop BSG was 103mg/dL. Patient did receive 8mg iv dexamethasone preop x 1. Post op BSG was 127mg/dL and at HS was 171mg/dL. Patient was started on a w eight based bolus insulin regimen with a stress between 1 and 2 at HS. * Fasting BSG was 150mg/dL this morning. Dexamethasone 6mg iv daily x 3 has been ordered to start this morning. Will not start basal insulin at this time and will continue the current bolus insulin regimen. PLAN FOR INPATIENT GLYCEMIC CONTROL: * Hold outpatient oral diabetes medications * Basal insulin * Hold for now. Will reassess need with additional BSG readings. * Bolus insulin * NovoLog per scale ACHS or Q6hrs while NPO * Goal Range: Low 110 mg/dL - High 140 mg/dL * Correction Factor: 25 mg/dL/unit * Nutritional / Prandial insulin per carb ratio of 1 unit per 15 grams CHO consumed
--- NOTE | 2024-07-01 10:44 | Orthopedic Progress Note ---
Date of Service July 01, 2024 Assessment & Plan (1) Two-level lumbosacral spondylosis with radiculopathy: Plan: At this time we will continue physical therapy monitor MAG output over the discharge home in the next few days. Admission and Anticipated Discharge Date Admission Date: June 30, 2024 Subjective Back pain is controlled leg symptoms improved Physical Exam Physical Exam: Patient has good strength testing. She appears comfortable. Results & Data Vital Signs (Past 12 Hours) Vital Signs Temp Pulse Pulse Resp BP Pulse Ox O2 Del Method 07/01/24 07:29 36.7 C 99 H 18 120/75 93 Room Air 07/01/24 05:30 36.8 C 94 H 18 116/73 91 Room Air 07/01/24 01:29 36.7 C 103 H 18 128/70 94 Nasal Cannula 06/30/24 23:38 36.8 C 101 H 18 125/77 97 Nasal Cannula O2 Flow Rate 07/01/24 07:29 07/01/24 05:30 07/01/24 01:29 2 06/30/24 23:38 2 Queries Orthopedic Spine Obesity: Yes
[2024-07-01 11:25] LABS: Basophils # (auto) 0.03 K/uL (0.00-0.20); Basophils % (auto) 0.2 %; Eosinophils # (auto) 0.01 K/uL (0.00-0.50); Eosinophils % (auto) 0.1 %; Hematocrit (blood only) 31.8 % (37.0-47.0); Immature Granulocytes # (auto) 0.15 K/uL (0.01-0.20); Lymphocytes # (auto) 0.97 K/uL (1.20-3.40); Lymphocytes % (auto) 6.2 %; Mean Corpuscular Hemoglobin 31.7 pg (25.0-34.0); Mean Corpuscular Hgb Conc 34.6 g/dL (32.0-36.0); Mean Corpuscular Volume 91.6 fL (80.0-100.0); Mean Platelet Volume 9.5 fL (9.4-12.4); Monocytes # (auto) 0.78 K/uL (0.11-0.59); Neutrophils # (auto) 13.77 K/uL (1.40-6.50); Neutrophils % (auto) 87.5 %; Platelet Count 269 K/uL (130-400); RDW Coefficient of Variation 11.9 % (11.5-14.5); RDW Standard Deviation 39.7 fL (36.4-46.3); Red Blood Count 3.47 M/uL (4.20-5.40); White Blood Count 15.71 K/ul (4.8-10.8)
[2024-07-01 11:55] LABS: BUN Creatinine Ratio 15.1 (10-20); Calcium 8.3 mg/dl (8.6-10.3); Creatinine Clr Calc Pharmacy 129.9 ml/min
--- NOTE | 2024-07-01 14:35 | Fluoroscopy Report ---
FL lumbar spine 2-3V CLINICAL HISTORY: L4-S1 DECOMPRESSION AND FUSION WITH INTERBODY COMPARISON STUDY: None FLUOROSCOPY TIME: 25 seconds FLUOROSCOPY IMAGES: 3 EXPOSURE DOSE: 22 mGy FINDINGS: Fluoroscopy was provided for lower lumbar decompression and fusion. IMPRESSION: Intraoperative fluoroscopy. ACT 112: Negative or not required by law. Electronically signed by: Genaro Mercado M.D. 07/01/2024 2:34 PM
[2024-07-01] MEDS: LURASIDONE HCL 20 MG TAB PO SCH (16:08)
[2024-07-02] MEDS: ACETAMINOPHEN 500 MG TAB PO PRN (05:29)
--- NOTE | 2024-07-02 08:39 | Orthopedic Progress Note ---
Date of Service July 02, 2024 Assessment & Plan (1) Two-level lumbosacral spondylosis with radiculopathy: Plan: Karol is postoperative day 2 status post lumbar decompression and fusion L4- S1. Will continue with physical therapy and ambulation today. Continue with pain control. Maintain MAG drain. DVT prophylaxis is in the form teds and SCDs. Anticipate discharge home tomorrow Admission and Anticipated Discharge Date Admission Date: June 30, 2024 Subjective Karol is postoperative day 2 status post lumbar decompression and fusion L4- S1. Leg symptoms have resolved. Back pain is controlled. She is passing flatus but no bowel movement. MAG drain output last shift was 55 cc. Yesterday in physical therapy Ambulating 125 feet. No other complaints. Review of Systems Review of Systems: All systems reviewed & are unremarkable except as noted in HPI & below Physical Exam Physical Exam: She is laying in bed in no acute distress Alert and oriented x 3 lumbar dressing is clean dry and intact with functioning MAG drain strength intact bilateral lower extremities Results & Data Vital Signs (Past 12 Hours) Vital Signs Temp Pulse Resp BP Pulse Ox O2 Del Method 07/02/24 07:08 36.5 C 67 16 107/62 96 Room Air Queries Orthopedic Spine Obesity: Yes
[2024-07-02 19:42] VITALS: TEMP 98.1
[2024-07-03 08:10] VITALS: BP 109/60; PULSE 66; RESP 16; O2SAT 97
--- NOTE | 2024-07-03 09:55 | Discharge Summary ---
Date of Service July 03, 2024 Admission HPI Per Admitting Provider This is a 33-year-old female who presents chronic persistent back and leg pain and failing course of nonoperative care is here for surgical invention. Principal Diagnosis Lumbar spondylosis with radiculopathy Discharge Data Allergies Allergy/AdvReac Type Severity Reaction Status Date / Time cefaclor Allergy Severe Respiratory Verified 06/30/24 12:12 issues (as a premie baby) soap Allergy Intermediate Ivory Soap Verified 06/30/24 12:12 - Hives gabapentin AdvReac Severe Anger, Verified 06/30/24 12:12 crying, mood rage pregabalin AdvReac Severe anger, Verified 06/30/24 12:12 crying, mood rage Procedures Performed Operation Date: 06/30/24 13:30 Actual Procedures p L4-S1 Decompression and Fusion(Not Applicable) - Yevgeniy Rivera DO Ordered Studies 06/30/24 07:45 [place] lumbar spine 2-3V Routine Hospital Course (1) Two-level lumbosacral spondylosis with radiculopathy: Patient underwent multilevel lumbar decompression fusion tolerated as well as taken orthopedic for postoperative. Post ablation progressed appropriate. Pain controlled. MAG drain decreasing. Extra strength testing. Simply discharged home. Discharge orders and instructions from the chart for further review. Total Time Total Time Spent Total Time Spent (In Minutes): 20 minutes Discharge Plan Discharge Items Patient Disposition: Home - Self-Care Reason For Visit: Lumbar Disc Herniation, Lumbar Radiculopathy, Lumb Discharge Diagnosis: Lumbar spondylosis with radiculopathy Activity: As commented below Non-emergency contact: Primary Care Provider Call non-emergency contact if: you have any medication questions Follow-up/Referrals: Best Marie MD [Primary Care Provider] - Diet: Regular Addtl Attending Provider Instructions: ACTIVITY RECOMMENDATIONS: SELF CARE INSTRUCTIONS AFTER THORACIC/LUMBAR FUSIONS 1. You may walk to your tolerance. It is good exercise for your legs and back. Expect some back and intermittent leg aches and pains. 2. You may perform "counter-top" level activities (make a sandwich, majo with a project, etc.). 3. No bending or lifting of more than 10 pounds or back twisting of any nature (roll like a log when turning in bed). 4. You may ride in a car for 20-30 minutes at a time. No driving until after your first visit with your doctor. 5. Frequent changes of position and restricting sitting to 30 minutes at a time will help limit the amount of back spasms and stiffness you may experience. 6. You may discontinue the use of ambulatory aids (cane, crutches, etc.) once your strength and confidence allow. 7. 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 Do not take a tub bath, sit in a hot tub or go into a swimming pool until after your first recheck in the office. 8. You may resume previous diet. SPECIAL CARE INSTRUCTIONS: VERY IMPORTANT TO READ AND REVIEW A. Your surgical incision has been closed with a cosmetic suture under the skin that will dissolve in about 6 weeks. In 14 days, you can use a pair of clean scissors and cut the suture that is left outside of the skin at the ends of your incision. 1. The small skin tapes can be removed 7 days after surgery if they have not fallen off by that point. 2. You may keep the wound open to air as much as possible to promote healing after post-op day number 5 unless told otherwise by your doctor. 3. If you think the wound looks like it is becoming infected (redness or worsening drainage) and/or you are experiencing fever, chill or worsening back pain and muscle spasms, contact the office so that we may evaluate you as soon as possible. B. Complications are uncommon, but please contact us if you have any signs or symptoms of: 1. wound infection (fever higher than 102.5 degrees F, redness, separation of wound, drainage, or increasing pain from the incision) 2. blood clots in legs (pain, swelling, redness and warmth in legs) 3. urinary tract infection (fever higher than 102.5 degrees F, burning upon urination or increased frequency of urination) 4. nerve problems (inability to walk on your toes or heels, numbness, loss of bowel or bladder control) 5. any other symptoms that concern you C. Please call the office at if you have any concerns or questions about your operation or recovery. D. No smoking! Smoking drastically decreases the chance of a solid fusion. E. Do not take any anti-inflammatory medications (Indocin, Advil, Motrin, Aspirin, Naprosyn, etc.) as these may inhibit the chance of a solid fusion. Tylenol is okay to take for pain. MANAGING PAIN AFTER SPINAL SURGERY 1. Narcotic medication is intended for short-term use and will be provided for surgical pain. Surgical pain usually lasts for a period of 4-6 weeks. Narcotic medication includes Percocet, Vicodin, Darvocet, Tylenol #3 or Lortab. 2. Longer-term pain is more appropriately treated with non-narcotic medication such as Tylenol ES. 3. Muscle spasm is not appropriately treated with narcotics. Muscle relaxers such as Soma, Flexeril or Skelaxin can be used along with Tylenol ES. 4. Remember that we all live with some "aches and pains". This is not unusual or uncommon after an injury or as we get older. a. Back pain is expected and may include muscle spasms for 4 to 6 weeks after surgery. The pain should gradually improve. If the pain worsens for no apparent reason, please contact the office. b. Intermittent leg pain may also be experienced and should not be concerned about unless it worsens for no apparent reason. If so, please contact the office. 5. We will provide appropriate medication within the normal guidelines of their prescribed use. We will also be very cautious and aware of potential abuse and extended duration of patients' medication needs. a. Pain medications are for your comfort and to assist with sleep and rest so that the tissue can heal. They are not provided in order to return to normal activity and should not be used through the day. To do so or worsening pain at night can result from ongoing tissue damage and development of tolerance to the prescribed medicine. 6. Please allow 2-3 days to process refills. Prescriptions will not be mailed but must be picked up at the office. FOLLOW UP VISIT: Keep your scheduled follow-up appointment. Any questions, please call the office at . Pending Studies at Discharge: No Stand-Alone Forms: My [facility], Smoking Cessation Medications and AL Order Prescriptions: New tramadol 50 mg tablet 50 mg PO Q6H PRN (Reason: pain, moderate) Qty: 30 0RF oxycodone 5 mg tablet 5 mg PO Q6H PRN (Reason: pain) Qty: 30 0RF Continued Mirena 20 mcg/24 hr (5 years) Intrauterine Device 1 device Intrauterine UD lurasidone [Latuda] 120 mg tablet 120 mg PO QDD Rx Instructions: MUST TAKE WITH FOOD metformin 500 mg Tablet Extended Release 24 Hr 500 mg PO QAM duloxetine [Cymbalta] 60 mg Capsule,Delayed Release(Dr/Ec) 60 mg PO BID lidocaine [Salonpas (lidocaine)] 4 % Adhesive Patch,Medicated 1 patch TOPICAL DAILY PRN (Reason: Pain) clonazepam [Klonopin] 1 mg Tablet 1 mg PO BID PRN (Reason: Anxiety) pantoprazole [Protonix] 40 mg tablet,delayed release (DR/EC) 40 mg PO QAM tizanidine [Zanaflex] 2 mg Capsule 2 mg PO Q8H PRN (Reason: Pain, muscle spasms) bupropion HCl 100 mg Tablet 100 mg PO QAM doxepin 10 mg Capsule 10 mg PO HS Discharge Orders: Discharge Order (Routine); Ordered 07/03/24 Ordered By: Yevgeniy Rivera Admission Data Admit Date/Time: 06/30/24 16:56 Attending Provider: Yevgeniy Rivera Admit Provider: Yevgeniy Rivera Primary Care Provider: Best Marie
== END 2024-07-03 15:33 | disposition home or self-care (01) | DRG 428 ==
LOC: ASU 11:38 → 3N 16:56 → INTOOBSV 16:56